=== PATIENT | female | born 1985 | race Caucasian/White ===

== ENCOUNTER → 2022-03-08 | Outpatient (CLI) | payer BC, MEDICAID, SELFPAY ==
[2022-03-12 09:07] LABS: Chlamydia By Nucleic Acid AMP Negative (Negative)
[2022-03-12 18:39] LABS: Gonococcus By Nucleic Acid AMP Negative (Negative)
[2022-03-14 16:25] LABS: HPV APTIMA, High Risk Positive (Negative)
== END | disposition home or self-care (01) ==
PROVIDERS: PCP Internal Medicine; Visit Provider Obstetrics & Gynecology
DX: O23.40 Unspecified infection of urinary tract in pregnancy, unspecified trimester (principal); O99.891 Other specified diseases and conditions complicating pregnancy; R31.9 Hematuria, unspecified
CPT/HCPCS: 87086; 87491; 87591; 87624; 88175; G0145

== ENCOUNTER → 2022-03-09 | Outpatient (CLI) | payer BC, MEDICAID, SELFPAY ==
[2022-03-09 10:26] LABS: Absolute Lymphocyte Count 3.19 X10^3/uL (0.83-4.51); Absolute Neutrophil Count 8.3 X10^3/uL (2.0-7.7); Basophil# 0.04 X10^3/uL; Basophil% 0.3 % (0-1); Eosinophil# 0.24 X10^3/uL; Eosinophils% 1.9 % (0-5); Hematocrit 35.1 % (37-47); Hemoglobin 12.3 g/dL (12.0-15.0); Lymphocyte # 3.19 X10^3/ul (0.83-4.51); Lymphocyte % 25.4 % (19-41); Mean Corpuscular Volume 91.4 fL (81-99); Mean Platelet Vol. 8.7 fl (6.2-12.0); Monocyte# 0.79 X10^3/uL; Monocyte% 6.3 % (0-10); NRBC Flagged by Analyzer 0 % (0-5); Neutrophil # 8.25 X10^3/uL (2.7-7.7); Neutrophil % 65.5 % (47-70); Platelet Count 188 K/mm3 (150-450); RBC Distribution Width CV 12.9 % (11.6-14.6); RBC Distribution Width SD 42.4 fl (35.1-43.9); Red Blood Count 3.84 M/mm3 (4.2-5.4); White Blood Count 12.6 K/mm3 (4.4-11.0)
[2022-03-09 10:53] LABS: Glucose Challenge Gest 1H 50g 131 mg/dL (70-140)
[2022-03-09 11:10] LABS: NATERA MAILED SPECIMEN
[2022-03-09 11:32] LABS: HIV - WCH Non-Reactive (Nonreactive); Hepatitis B Surface Antigen Non-Reactive (Nonreactive); Hepatitis C Antibody Non-Reactive (Nonreactive); Rubella IgG Reactive (Nonreactive); Syphilis Antibodies Non-reactive
== END | disposition home or self-care (01) ==
PROVIDERS: PCP Internal Medicine; Referring Provider Obstetrics & Gynecology; Visit Provider Obstetrics & Gynecology
DX: O99.210 Obesity complicating pregnancy, unspecified trimester (principal); O09.521 Supervision of elderly multigravida, first trimester; Z31.430 Encounter of female for testing for genetic disease carrier status for procreative management
CPT/HCPCS: 36415; 82950; 85025; 86703; 86762; 86780; 86803; 86850; 86900; 86901; 87340

== ENCOUNTER → 2022-04-12 | Outpatient (CLI) | payer BC, MEDICAID, SELFPAY ==
--- NOTE | 2022-04-12 | EMB_PTH ---
PATIENT: LOC SIMEON LOC: [facility]#:[id number] AGE/SX: 37/F ROOM: RE04/12/[address]: Dr. Myranda Cazares DO : 1985 BED: DIS: 04/12/2022 SPEC #: [id number] RECD: 04/12/22 11:13 STATUS: MARCIA LONG #: [id number] SATYA: 04/12/22 00:[address]: Myranda Cazares DEPT: SURGICAL PATHOLOGY RECD BY: Moises Ceja ENTERED: 04/12/22 11:13 SP TYPE: ENDOM BX/C BRODER[place] DR: Dr. Renee Morse MD Tissues: Endometrium, NOS Procedures: Surgery Specimen Level IV HEADER OPERATION: Polypectomy PRE-OP DIAGNOSIS: Endocervical mass TISSUE SUBMITTED: Endocervical mass MICROSCOPIC DIAGNOSIS Endocervical mass, polypectomy: Inflamed benign endocervical polyp. SJ:sarah 04/13/2022 MICROSCOPIC DESCRIPTION Slides are reviewed. GROSS DESCRIPTION Received is one container labeled with the patient's name and not further designated. The specimen consists of a piece of hernandez mucoid tissue measuring 0.6 x 0.5 x 0.1 cm. The entire specimen is submitted in one cassette. / ANA:sarah 04/12/2022 TC:5 CPT: 78722
== END | disposition home or self-care (01) ==
PROVIDERS: PCP Internal Medicine; Referring Provider Obstetrics & Gynecology; Visit Provider Obstetrics & Gynecology
DX: N88.8 Other specified noninflammatory disorders of cervix uteri (principal)
CPT/HCPCS: 88305

== ENCOUNTER → 2022-07-02 | Outpatient (CLI) | payer BC, MEDICAID, SELFPAY ==
[2022-07-02 10:02] LABS: Absolute Lymphocyte Count 2.02 X10^3/uL (0.83-4.51); Absolute Neutrophil Count 7.5 X10^3/uL (2.0-7.7); Basophil# 0.04 X10^3/uL; Basophil% 0.4 % (0-1); Eosinophil# 0.15 X10^3/uL; Eosinophils% 1.4 % (0-5); Hematocrit 35.5 % (37-47); Hemoglobin 12.4 g/dL (12.0-15.0); Lymphocyte # 2.02 X10^3/ul (0.83-4.51); Lymphocyte % 19.3 % (19-41); Mean Corp Hgb Conc 34.9 g/dL (32-36); Mean Corpuscular Volume 97.3 fL (81-99); Mean Platelet Vol. 8.7 fl (6.2-12.0); Monocyte# 0.72 X10^3/uL; Monocyte% 6.9 % (0-10); NRBC Flagged by Analyzer 0 % (0-5); Neutrophil # 7.46 X10^3/uL (2.7-7.7); Neutrophil % 71.3 % (47-70); Platelet Count 178 K/mm3 (150-450); RBC Distribution Width CV 14.3 % (11.6-14.6); Red Blood Count 3.65 M/mm3 (4.2-5.4); White Blood Count 10.5 K/mm3 (4.4-11.0)
[2022-07-02 10:16] LABS: Glucose Challenge Gest 1H 50g 123 mg/dL (70-140)
[2022-07-02 11:16] LABS: HIV - WCH Non-Reactive (Nonreactive); Syphilis Antibodies Non-reactive
== END | disposition home or self-care (01) ==
LOC: PAVLAB 09:36
PROVIDERS: PCP Internal Medicine; Referring Provider Obstetrics & Gynecology; Visit Provider Obstetrics & Gynecology
DX: O09.90 Supervision of high risk pregnancy, unspecified, unspecified trimester (principal); Z3A.00 Weeks of gestation of pregnancy not specified
CPT/HCPCS: 36415; 82950; 85025; 86703; 86780

== ENCOUNTER 2022-08-18 22:10 | Inpatient (IN) | payer BC, MEDICAID, SELFPAY ==
[2022-08-18 22:04] LABS: ROM Internal Control Test YES-OK TO RESULT pt. (Internal QC); ROM Patient Test POSITIVE (Negative); Record Kit Lot#, ROM+ K1374
[2022-08-18 22:13] VITALS: BMI 44.0
[2022-08-18] MEDS: Betamethasone/Betamethasone 30 MG/5 ML Vial 12 MG IM (22:36)
[2022-08-18] MEDS: Lactated Ringers 1,000 ML 50 ML IV (22:47)
[2022-08-18 22:57] LABS: Absolute Lymphocyte Count 2.56 X10^3/uL (0.83-4.51); Absolute Neutrophil Count 7.1 X10^3/uL (2.0-7.7); Basophil# 0.05 X10^3/uL; Basophil% 0.5 % (0-1); Eosinophils% 1.8 % (0-5); Hematocrit 35.5 % (37-47); Hemoglobin 12.1 g/dL (12.0-15.0); Lymphocyte # 2.56 X10^3/ul (0.83-4.51); Lymphocyte % 23.4 % (19-41); Mean Corp Hgb Conc 34.1 g/dL (32-36); Mean Corpuscular Hgb 33.3 pg (27.0-32.0); Mean Corpuscular Volume 97.8 fL (81-99); Mean Platelet Vol. 9.5 fl (6.2-12.0); Monocyte# 0.97 X10^3/uL; Monocyte% 8.9 % (0-10); NRBC Flagged by Analyzer 0 % (0-5); Neutrophil # 7.09 X10^3/uL (2.7-7.7); Neutrophil % 64.8 % (47-70); Platelet Count 201 K/mm3 (150-450); RBC Distribution Width SD 50.1 fl (35.1-43.9); Red Blood Count 3.63 M/mm3 (4.2-5.4); White Blood Count 10.9 K/mm3 (4.4-11.0)
[2022-08-18 23:20] LABS: Amphetamine Urine VISTA NEGATIVE (<1000 ng/mL); Barbiturate Urine VISTA NEGATIVE (< 200 ng/mL); Benzodiazepine Urine VISTA NEGATIVE (< 200 ng/mL); Cocaine Urine VISTA NEGATIVE (< 300 ng/mL); Ecstacy Urine VISTA NEGATIVE (< 500 ng/mL); Methadone Urine VISTA NEGATIVE (< 300 ng/mL); PCP Urine VISTA NEGATIVE (< 25 ng/mL); THC Urine VISTA NEGATIVE (< 50 ng/mL); Vista UDS pH Range 5
[2022-08-18 23:21] VITALS: BP 128/61; PULSE 96; TEMP 37.1; O2SAT 97
--- NOTE | 2022-08-18 23:23 | HP.PCM.OB_ITS ---
HPI - General General Date of Admission: 08/18/22 HPI Narrative LOC SIMEON, is a 37 y/o @ 34 weeks 4 days who presents to L&D with premature rupture of membranes. She felt a gush of fluid after having sex and then noticed some pink fluid. ROM+ was positive. Her was significant for circumvellate placenta. The last growth scan 2 weeks ago showed that the fetus was 1820 grams and in the 54th%. Maternal Data Information JENISE Calculator Estimated Delivery Date Method Current WG Current Estimate 09/25/22 Ultrasound #1 34w 4d Other Estimates 10/04/22 LMP (Certain) 33w 2d PFSH PFSH Medical History (Updated 08/18/22 @ 23:[address] Myranda Cazares, DO) Depression HPV (human papilloma virus) infection Hx of abnormal cervical Papanicolaou smear Placental abnormality depression Superficial varicosities Home Medications multivit-min no.71-iron fum 28 mg-folate no.1 1 mg-dha 300 mg capsule (PNV- [place]) 1 cap PO DAILY 03/02/22 [History Last Taken 08/16/22 09:00] cetirizine 10 mg tablet (24Hour Allergy) 10 mg PO DAILY PRN alleriges 08/18/22 [History Last Taken 08/16/22 09:00] Allergy/AdvReac Type Severity Reaction Status Date / Time No Known Allergies Allergy Verified 08/15/22 14:41 Family History Brother Heart murmur Surgical History (Updated 08/18/22 @ 22:19 by Kaylyn Barragan) History of surgery Hx of chest tube placement Hx of plastic surgery Social History adopted: No household members: spouse and children number of children: 2 current occupational status: employed current occupation: [employer] current occupational exposures/hazards: Yes (sanitation chemical once every two weeks) pets and animals: Yes pets and animals: dog(s) history of recent travel: No sexually active: Yes Smoking Status: Former smoker alcohol intake: former details: Quit March substance use type: does not use and former substance user Date of last use: 2011- meth, cocaine, marijuana diet: lactose free well-balanced diet: daily or most days caffeine: No eating out: 1-3 times/week during the past year weight has: remained stable what type of physical activity do you participate in: none roland/zoroastrianism: Adventist seatbelt use: always do you feel safe at home: Yes additional social history: [employer]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 Date Name GA/Weeks Outcome Route Bth Weight Infant Gen Labor Lgth Anesthesia Del Locatn Provider FOB 10/11/02 Sulaiman 39 live - full term 6#10oz Male 12 Hrs epi dural [facility] Dr. Marie Meyers 07/03/11 Lloyd 40 live - full term 7#2oz Male 12 HR epidu ral [facility] Esequiel Delivery Date: 10/11/02 Last Updated by: Wendy Owens IOL Delivery Date: 07/03/11 Last Updated by: Wendy Owens IOL Visit Details Expected Delivery Route/Plan Labor Preferences- CB/BF classes: no labor support person: Jered labor intervention preferences: pain management options preferred: epidural cut cord/dad catch: cord : yes PP control planned: [] discussed possible routes of delivery and associated risks: [] special requests: [] Plans Covid status: [] Flu vaccine: [] Tdap vaccine: [] Rhogam: [] LARC form signed: [] Problem list reviewed and updated with the most current plan of care details and appropriate orders placed. Relevant counseling for the gestational age provided. Continue routine care and follow up unless otherwise noted in visit notes/problem list details OB Flowsheet Initial Weight: Not Recorded Date -?-?-?-?-?-?-?-?-?-?-?-?- EGA Weight BP Urine Prot -?-?-?-?-?-?-?-?-?-?-?-?- Glucose FHR FuHt Pres Dilation -?-?-?-?-?-?-?-?-?-?-?-?- Effaced St Visit Note 03/08/22 -?-?-?-?-?-?-?-?-?-?-?-?- 11w 2d 265 lb 108/75 -?-?-?-?-?-?-?-?-?-?-?-?- 180 -?-?-?-?-?-?-?-?-?-?-?-?- JV- single live IUP measuring 11 weeks 2 days and not consistent with lmp. new jenise of 09/25/22 given. pt desires NIPT. youngest baby is 10 years old 04/02/22 -?-?-?-?-?-?-?-?-?-?-?-?- 14w 6d 265 lb 6 oz 110/72 Nega tive -?-?-?-?-?-?-?-?-?-?-?-?- Negative 170 -?-?-?-?-?-?-?-?-?-?-?-?- MH-NO Vb, eddie ng. Feels well. Br US confirm FHT. 04/30/22 -?-?-?-?-?-?-?-?-?-?-?-?- 18w 6d 270 lb 4 oz 124/82 Nega tive -?-?-?-?-?-?-?-?-?-?-?-?- Negative 154 -?-?-?-?-?-?-?-?-?-?-?-?- MH-No Vb, LOF. F eeling flutters. Anatomy US today 05/28/22 -?-?-?-?-?-?-?-?-?-?-?-?- 22w 6d 271 lb 8 oz 123/75 -?-?-?-?-?-?-?-?-?-?-?-?- 140 -?-?-?-?-?-?-?-?-?-?-?-?- Sm- no vb lof go od fm no regular ctx 06/25/22 -?-?-?-?-?-?-?-?-?-?-?-?- 26w 6d 276 lb 8 oz 120/76 Nega tive -?-?-?-?-?-?-?-?-?-?-?-?- Negative 132 -?-?-?-?-?-?-?-?-?-?-?-?- MH-No Vb, LOF. G ood FM. Has US with MFM 06/26 to check placenta. 07/10/22 -?-?-?-?-?-?-?-?-?-?-?-?- 29w 0d 274 lb 114/74 Negative -?-?-?-?-?-?-?-?-?-?-?-?- Negative 150 -?-?-?-?-?-?-?-?-?-?-?-?- SM- no vb lof go od fm no regular ctx 08/02/22 -?-?-?-?-?-?-?-?-?-?-?-?- 32w 2d 281 lb 4 oz 109/73 Nega tive -?-?-?-?-?-?-?-?-?-?-?-?- Negative 129 33 -?-?-?-?-?-?-?-?-?-?-?-?- JV- growth scan in the 54th%, circumvellate placenta, bpp 09/25. has follow up in 4 weeks. resolved low lying placenta. 08/15/22 -?-?-?-?-?-?-?-?-?-?-?-?- 34w 1d 289 lb 2 oz 125/81 Nega tive -?-?-?-?-?-?-?-?-?-?-?-?- Negative 120 34 -?-?-?-?-?-?-?-?-?-?-?-?- LC- reactive nst . no vb/lof/ctx. good fm.growth scans scheduled. ROS Constitutional Constitutional: Denies change in weight, fatigue, fever(s), headache(s), poor appetite or weakness Eyes Eyes: Denies blurry vision, change in vision, seeing flashes or spots in vision ENT HEENT: Denies dizziness, headache(s), loss taste/smell or sore throat Cardiovascular Cardiovascular: Denies chest pain, dizziness, dyspnea, irregular heart rhythm, leg edema, palpitations, rapid heart rate or vomiting Respiratory/Chest Respiratory/Chest: Denies chest tightness, cough, dyspnea or breast pain Gastrointestinal Gastrointestinal: Denies abdominal pain, anorexia, constipation, cramping, diarrhea, hemorrhoids, vomiting or weight changes Genitourinary Genitourinary: Denies dysuria, flank pain, genital lesions, genital pain, urinary frequency or urinary urgency Musculoskeletal Musculoskeletal: Denies back pain, difficulty walking, joint pain, limited range of motion, muscle cramps or numbness Integumentary Integumentary: Denies lesions or unusual bruising Neurologic Neurologic: Denies abnormal movements, abnormal speech, dizziness, numbness, seizure-like activity or syncope Psychiatric Psychiatric: Denies anxiety, behavioral changes, change in appetite, change in libido, cognitive impairment, confusion, depression, difficulty concentrating, hallucinations or suicidal thoughts Endocrine Endocrinology: Denies excessive sweating, polydipsia or polyuria Hematologic/Lymphatic Hematologic/Lymphatic: Denies easy bleeding, easy bruising or lymphadenopathy Allergic/Immunologic Allergic/Immunologic: Denies itchy eyes, lip swelling, seasonal rhinorrhea, rhinitis, throat swelling, tongue swelling, eczemia, wheezing or asthma Vital Signs Vital Signs Vital Signs: 08/18/22 23:21 08/18/22 23:21 08/18/22 23:21 Temperature Temperature Source Tympanic Pulse Rate 96 Blood Pressure 128/61 H BP Systolic 128 BP Diastolic 61 Pulse Ox 08/18/22 23:21 08/18/22 23:21 Temperature 98.8 F Temperature Source Pulse Rate Blood Pressure BP Systolic BP Diastolic Pulse Ox 97 Weight Weight: 289 lb 7.471 oz Body Mass Index (BMI) 44.0 Physical Exam Const alert, oriented x3, no apparent distress and healthy appearing General Appearance: cooperative; Negative for anxious HEENT normocephalic Face and Sinus: normal facial exam Eyes EOMs intact bilaterally and no scleral icterus General Eye: normal appearance of both eyes Neck full ROM and supple Lymph Lymphatic: no lymphadenopathy noted Chest Chest: abnormal inspection of the chest Resp normal respiratory effort Effort and Inspection: able to speak in complete sentences Cardio regular rate GI soft to palpation and non-tender Inspection: gravid Palpation: soft; Negative for tender external exam normal Narrative: on bedside ultrasound the head is in the vertex presentation, GERMAN is 12. cx: Amniotic Fluid: ROM+plus positive + Back/Spine no CVA tenderness Extremity normal to inspection, full ROM and no clubbing, cyanosis or edema General Extremity: Negative for calf tenderness or edema Skin Lesions: no lesions Rashes: no rashes Psych mental status grossly normal Labs Labs Labs: Blood Type O POSITIVE Antibody Screen NEGATIVE Hct 35.5 % (37-47) L Hgb 12.1 g/dL (12.0-15.0) Syphilis Total Ab Non-reactive Rubella IgG Antibody Reactive (Nonreactive) Hep Bs Antigen Non-Reactive (Nonreactive) Chlamydia DNA (DEE DEE) Negative (Negative) Neisseria gonorrhoeae DNA (DEE DEE) Negative (Negative) HIV 1&2 Antibody Non-Reactive (Nonreactive) Glucose 1 Hr 50 gm 123 mg/dL (70-140) Assessment & Plan (1) premature rupture of membranes: (2) Circumvallate placenta: COMMENT: Growth US Q4 wk: 07/26 54% (3) Abnormal Pap smear of cervix: COMMENT: repeat pap PP (4) Obesity affecting : COMMENT: encouraged healthy weight gain, weely nsts after 34 (5) Advanced maternal age (AMA) in : COMMENT: nl NIPT. genetic counseling provided (6) Depression: COMMENT: no meds counseling encouraged (7) Supervision of high risk , antepartum: COMMENT: [id number], JENISE 10/04/22 boy lydia Hilario, Lloyd Elmo (8) : QUALIFIERS: Weeks of gestation: 34 weeks Qualified Code(s): Z3A.34 - 34 weeks gestation of COMMENT: NIPT low risk, carrier testing neg. . ntd screen declined. anatomy nl. PLAN: Plan 1. admit to L&D 2. collect gbs and gc/ct, cbc, type and screen,syphilis 3. start amp 2grams now, 250mg of azith 4. celestone 12.5 mg im now 5. if no spontaneous labor in 24 hours will likely induce tomorrow. pt asks about continuing with observation if no labor. we will discuss this at that benito erick
[2022-08-18] MEDS: Azithromycin 250 MG Tablet 500 MG PO (23:56)
[2022-08-19] VITALS (14 sets, daily range): BP systolic 120–137; BP diastolic 62–83; PULSE 83–104; TEMP 36.1–37.2; O2SAT 95–98
[2022-08-19 00:01] LABS: Syphilis Antibodies Non-reactive
[2022-08-19] MEDS: Lactated Ringers 1,000 ML 100 ML IV (00:42)
[2022-08-19 02:57] LABS: Bacteria 0 SEEN /hpf (None Seen); Mucous, Urine 0 SEEN /hpf (<or=2+); Red Blood Cells-Urine 0 SEEN /hpf (0-5); Squamous Epithelial Cells - UA 0 SEEN /hpf (5-10); White Blood Cells 0 SEEN /hpf (0-5)
[2022-08-19 02:59] LABS: Color, Urine Yellow (Yellow); Glucose, Dipstick Normal (Normal); Ketone-Dipstick Negative (Negative); Leukocyte Esterase-Dipstick Negative /ul (Negative); Nitrite-Dipstick Negative (Negative); Occult Blood-Urine 10 /ul (Negative); Protein-Dipstick Negative (Negative); Specific Gravity, Urine 1.005 (1.002-1.030); Urine Bilirubin Dipstick Negative (Negative); Urine Clarity Clear (Clear); Urine Urobilinogen Normal (Normal)
[2022-08-19 03:24] LABS: Group B Strep DNA By PCR Negative (Negative); Internal Control PASS; Probe Check PASS; Specimen Processing Control PASS
--- NOTE | 2022-08-19 09:21 | PCM.PN.BLA ---
Progress Note patient is laying in bed comfortably. She is not having any contractions, fevers, or chills. current tracing: FHT: Moderate variability reactive no decelerations category I tracing [place]: rare Contractions reviewed tracing abnormalities since last note: category 1 since admission A/P: pprom continue expectant management today. celestone was given at 10 pm last night. will wait 24 hours until starting induction. likely will need cytotec due to prior cervical exam. pt wishes to have epidural in active labor scd's today while in bed.
[2022-08-19] MEDS: 0.9% Saline Lock 10 ML Syringe IV (10:59)
[2022-08-19] MEDS: Docusate Sodium 100 MG Capsule 200 MG PO (11:38)
[2022-08-19] MEDS: Prenatal Vits Tablet 1 TABLET PO (11:38)
[2022-08-19] MEDS: Betamethasone/Betamethasone 30 MG/5 ML Vial 12 MG IM (22:32)
[2022-08-19] MEDS: miSOPROStol 25 MCG TABLET PO (22:40)
[2022-08-20] VITALS (31 sets, daily range): BP systolic 102–152; BP diastolic 48–86; PULSE 76–112; RESP 16–18; TEMP 36.2–37; O2SAT 97–100
[2022-08-20] MEDS: miSOPROStol 25 MCG TABLET PO (03:08)
[2022-08-20] MEDS: Lactated Ringers 1,000 ML 50 ML IV (07:26)
[2022-08-20] MEDS: Oxytocin 15 Units/NS 250ml 15 UNITS/250 ML IV.SOLN 2 UNITS IV (07:26)
[2022-08-20] MEDS: 0.9% Saline Lock 10 ML Syringe IV (09:33)
[2022-08-20] MEDS: LACTATED RINGERS 500 ML 999 ML IV (09:33)
--- NOTE | 2022-08-20 10:52 | PN_ITS ---
Progress Note pit started for minimal cervical change current tracing: FHT: 140 Moderate variability reactive no decelerations category I tracing [place]: no regular Contractions reviewed tracing abnormalities since last note: isolated variable A/P: continue pit per protocol, amp stopped gbs neg
[2022-08-20] MEDS: fentaNYL-bupivacaine (epidural) 100 ML BAG EPIDURAL (11:46)
[2022-08-20] MEDS: Docusate Sodium 100 MG Capsule 200 MG PO (12:07)
[2022-08-20] MEDS: Ondansetron 4 MG/2 ML Vial IV (15:42)
[2022-08-20] MEDS: Lactated Ringers 1,000 ML 200 ML IV (15:46)
[2022-08-20] MEDS: Oxytocin 15 Units/NS 250ml 15 UNITS/250 ML IV.SOLN 83 UNITS IV (16:45)
--- NOTE | 2022-08-20 17:31 | OP.PCM_ITS ---
Assessment & Plan (1) premature rupture of membranes: (2) Circumvallate placenta: COMMENT: Growth US Q4 wk: 07/26 54% (3) Abnormal Pap smear of cervix: COMMENT: repeat pap PP (4) Obesity affecting : COMMENT: encouraged healthy weight gain, weely nsts after 34 (5) Advanced maternal age (AMA) in : COMMENT: nl NIPT. genetic counseling provided (6) : QUALIFIERS: Weeks of gestation: 34 weeks Qualified Code(s): Z3A.34 - 34 weeks gestation of COMMENT: NIPT low risk, carrier testing neg. . ntd screen declined. anatomy nl. (7) Supervision of high risk , antepartum: COMMENT: [id number], JENISE 10/04/22 boy darvin MICHAEL Hilario, Lloyd Elmo (8) Depression: COMMENT: no meds counseling encouraged (9) Vaginal delivery: COMMENT: SM 34 PPROM boy Darvin Maternal Data Information JENISE Calculator Estimated Delivery Date Method Current WG Current Estimate 09/25/22 Ultrasound #1 34w 6d Other Estimates 10/04/22 LMP (Certain) 33w 4d Vaginal Delivery Operative Information Date of Procedure: 08/20/22 Pre-Operative Diagnosis: see a/p diagnoses Post-Operative Diagnosis: same Surgery / Procedure Performed: Spontaneous Vaginal Delivery Type of Anesthesia: Epidural Special Medications: none Estimated Blood Loss: 200 Fluids Replaced: crystalloid Findings Description of Procedure: Patient was 4 cm at 215 on last nursing cervical exam and then at 4:00 it was difficult to trace the heart rate tracing and therefore the nurse repositioned the patient and upon opening her legs visualized the head and the shoulders spontaneously delivering themselves therefore the doctor (myself) was called immediately who was in-house in my office. I ran down and arrived as soon as possible and upon presentation had just delivered for the nurse spontaneously the cord was clamped and cut, the venetian blind tape cutter had not even arrived at delivery yet for assessment of the infant. Placenta was not yet delivered. I applied gentle traction to the cord and the placenta delivered spontaneously immediately following it was noted to be intact with three-vessel cord. The perineum and vagina were inspected and noted to have no laceration. EBL was 200 cc. Patient and tolerated delivery well. Amniotic Fluid Description: Clear Placental Delivery Description: Spontaneous Placenta Disposition: [facility] Cord Vessel Description: 3 Vessels Cord Entanglement: None Delayed Cord Clamping: Yes Post Vaginal Delivery Medications Given After Delivery: IV Pitocin Episiotomy Description: None Complication Complications: None Procedures Urinary/Genital [id number]: [id number] Vaginal Delivery [facility]
--- NOTE | 2022-08-20 17:37 | DCINST_ITS ---
Discharge Instructions Diet Discharge Diet: No restrictions Activity Discharge Activity: Return to Normal Activity, May Not Drive (while taking narcotic pain medications.) and May Shower May resume sexual activity in: 4-6 weeks Dressing / Incision Call your doctor if your incision/area has: Continuous Slow Oozing, Sudden Increased Bleeding, Increased Pain/ Swelling, Increased Redness and Foul Smelling Discharge Follow Up Care Please Follow Up With: Shazia Cosme MD When: Call [phone] to make an appointment with your doctor in 6 weeks. If you had elevated blood pressure or 4th degree laceration, you will need to be seen in 2 weeks. Test Results: Test results from this visit will be discussed in further detail at your follow- up appointment, if applicable. Discharge Plan Admission Admit Date/Time: 08/18/22 22:10 Attending Provider: Myranda Cazares Primary Care Provider: Renee Morse Discharge Orders/Prescriptions Prescriptions: No Action PNV-Haskell 28-1-300 mg capsule 1 cap PO DAILY cetirizine [24Hour Allergy] 10 mg tablet 10 mg PO DAILY PRN (Reason: alleriges) Referrals / Follow Up: Renee Morse MD [Primary Care Provider] - Disposition Disposition (needs filled in before D/C Order can be placed): Home, Self Care
[2022-08-21 03:58] VITALS: BP 114/67; PULSE 71; RESP 14; TEMP 36.2
--- NOTE | 2022-08-21 06:41 | PCM.PN.OB ---
Subjective Subjective Patient doing well without complaints. Tolerating PO. Ambulating and voiding without difficulty. feeding well. Denies chest pain, shortness of breath, calf pain/swelling, fevers, chills, lightheadedness. Objective Data Objective Data Vital Signs: Vital Signs Temp Pulse Resp BP Pulse Ox O2 Del Method 97.1 F L 71 14 114/67 99 Room Air 08/21/22 03:58 08/21/22 03:58 08/21/22 03:58 08/21/22 03:58 08/20/22 14:10 08/21/22 03:58 Oxygen Delivery Method Room Air Weight: 289 lb 7.471 oz Body Mass Index (BMI) 44.0 Intake & Output: Intake and Output for Last 24 Hours 08/19/22 08/20/22 08/21/22 23:59 23:59 23:59 Intake Total 3295.83 / 3295.83 4747.87 / 4747.87 Output Total 200 / 200 3900 / 3900 800 / 800 Balance 3095.83 / 3095.83 847.87 / 847.87 -800 / -800 Lab / Micro Data 08/18/22 22:45 Micro: Microbiology 08/18/22 02:49 Urine, Clean Catch Urine Culture - Preliminary Culture exhibits no growth. 08/19/22 02:49 Urine, Clean Catch Chlamydia trachomatis (PCR) - Final 08/19/22 02:49 Urine, Clean Catch Neisseria gonorrhoeae (PCR) - Final ROS Constitutional Constitutional: Reports systems reviewed and no addt'l complaints, except as documented Cardiovascular Cardiovascular: Reports systems reviewed and no addt'l complaints, except as documented Respiratory/Chest Respiratory/Chest: Reports systems reviewed and no addt'l complaints, except as documented Gastrointestinal Gastrointestinal: Reports systems reviewed and no addt'l complaints, except as documented Physical Exam Const alert, oriented x3 and no apparent distress HEENT Head and Scalp: atraumatic Resp normal respiratory effort GI soft to palpation and non-tender Bimanual Exam - Vag & Uterus: uterus non-tender Uterus Palpation: uterus fundus firm (below Umbilicus) Assessment & Plan (1) Vaginal delivery: COMMENT: SM 34 PPROM boy Darvin (2) Depression: COMMENT: no meds counseling encouraged PLAN: Plan s/p PPD # 1 1. routine post delivery care 2. breast feeding- support given 3. rh positive 4. rubella immune
[2022-08-21 09:00] VITALS: BP 121/61; PULSE 87; RESP 18; TEMP 36.4; O2SAT 98
[2022-08-21] MEDS: Naproxen 500 MG Tablet PO (13:34)
[2022-08-21 13:39] VITALS: BP 118/59; PULSE 87; RESP 18; TEMP 36.3
[2022-08-21 17:09] VITALS: BP 118/67; PULSE 79; RESP 18; TEMP 36.2
[2022-08-21 19:33] VITALS: BP 135/86; PULSE 77; RESP 15; TEMP 36.6; O2SAT 98
[2022-08-22 01:22] VITALS: BP 138/73; PULSE 79; RESP 15
--- NOTE | 2022-08-22 08:01 | PCM.PN.OB ---
Subjective Subjective Patient doing well without complaints. Tolerating PO. Ambulating and voiding without difficulty.Baby Darvin in SCN, she is pumping. He is latching briefly/has feeding tube. Denies chest pain, shortness of breath, calf pain/swelling, fevers, chills, lightheadedness. Objective Data Objective Data Vital Signs: Vital Signs Temp Pulse Resp BP Pulse Ox O2 Del Method 97.8 F 79 15 138/73 H 98 Room Air 08/21/22 19:33 08/22/22 01:22 08/22/22 01:22 08/22/22 01:22 08/21/22 19:33 08/22/22 01:22 Oxygen Delivery Method Room Air Weight: 289 lb 7.471 oz Body Mass Index (BMI) 44.0 Intake & Output: Intake and Output for Last 24 Hours 08/20/22 08/21/22 08/22/22 23:59 23:59 23:59 Intake Total 4747.87 / 4747.87 Output Total 3900 / 3900 800 / 800 Balance 847.87 / 847.87 -800 / -800 Lab / Micro Data 08/18/22 22:45 Micro: Microbiology 08/18/22 02:49 Urine, Clean Catch Urine Culture - Final Culture exhibits no growth. 08/19/22 02:49 Urine, Clean Catch Chlamydia trachomatis (PCR) - Final 08/19/22 02:49 Urine, Clean Catch Neisseria gonorrhoeae (PCR) - Final Physical Exam Const alert and oriented x3 HEENT normocephalic Eyes PERRL Neck full ROM Resp normal respiratory effort GI soft to palpation GI Narrative: FF below U Assessment & Plan (1) Vaginal delivery: COMMENT: SM 34 PPROM boy Darvin PLAN: Plan s/p PPD # 2 1. routine post delivery care 2. breast feeding- support given 3. rh positive 4. rubella immune 5. hotel status today
[2022-08-22 08:05] VITALS: BP 126/76; PULSE 80; RESP 16; TEMP 36; O2SAT 97
--- NOTE | 2022-08-22 15:56 | CASEMGMT ---
Social Work Assessment Labor and Delivery Unit Patient Address:[address] [place], [place] [address] [address] Phone number: [phone] Date of Referral: 08/18/22 Time of Referral:? [id number] Referred By: Myranda Cazares Date of Intervention: ??08/22/22 Time of Intervention:?1400 Reason for Referral:? Substance use, mental health History obtained from: medical records and mother of baby (MOB- Fiorella)??? Household composition: SELINA reports that currently living in her home is herself, father of baby (FOB- Elmo Peraza), Elmo's 18 year old child, and MOB son Lloyd (: 07/03/2011). Patient's parent/guardian status: SELINA reports that she and GAVI had known each other for quite some time. They have been in a relationship since 2020 when they started talking about their personal experiences with recovery, and focusing on their roland. SELINA reports that she is safe at home, denies current domestic violence/ abuse. Medical History: This is third and delivery for SELINA. Baby was born via vaginal delivery. SELNIA received routine care with [facility]. Baby boy, Darvin Nair, was born on 08/20/22 weighing 5lb and 10 ounces. Baby was born at 34 weeks gestation. Apgars were 4 and 9. Baby is admitted to [facility]. He required respiratory support following delivery and has been able to be weaned back to room air. He continues to work on oral feeds. Baby will need to take full feeds PO before he will medically be ready for discharge. Educational Status: MOB states that she has obtained her GED. MOB states that GAVI did not graduate but she is not sure his highest level of education. MOB states that FOB did require IEP. ? 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 He has been there for less than 6 months. His employer is being generous and offering FOB some time off following baby's delivery. SELINA is employed at [employer], she is able to get 6 weeks off of work. Supplies: MOB states that they have been able to obtain all necessary baby items including car seat, safe sleep space, clothes, diapers and wipes. Childcare/Caregiver(s):? MOB states that when both parents have returned to work she has family who will be able to watch baby. Transportation:?? Both parents have reliable transportation, no barriers at this time. Programs/Agencies Involved: SELINA is connected to [facility] and is active in counseling with Padmini Lee. ??? Children Services/Legal Issues:??MOB denies legal involvement. Behavioral Health Issues: ?? Mental Health History:??MOB states that GAVI has Bipolar and is prescribed a mood stabilizer. MOB states that she has been diagnosed with depression and has a history of depression when her first child was born. Dakotah completed Edingubrg Screen with SELINA, her score was a 5. Sw encouraged SELINA to continue to meet with her counselor and more regularly during her period. MOB expressed understanding. Substance Use History:?SELINA and FOB both have substance use history. SELINA has history of THC, cocaine and methamphetamine use, as well as alcoholism. SELINA reports that her last drink was March 2020 and the last time she used was in 2018. SELINA states that GAVI used last in 2019, he went through treatment at [facility] [place]. SELINA reports that both parents are good supports for each other. They do not engage with family members or friends who are still using. MOB states that they do not have a test for anything. Family History:?SELINA reports that her parents have history of alcoholism. Drug Screens: ?SELINA urine screen on 08/18/22 was negative for all substances. ? Family/Social Stressors:? SELINA does not express any concerns or issues at this time. Support Systems: SELINA reports that she has friends and family who are good supports for her. MOB states that GAVI also has some family who is supportive as well. Depression/Shaken Baby/Safe Sleeping: Dakotah provided education and literature on baby blues and post depression. Sw educated MOB on signs and symptoms to look for. MOB talked about symptoms that she experienced before. MOB states at this time she feels good and is coping well given that baby is admitted to [facility] Care Nurs[facility]. Dakotah educated MOB to never shake a baby and ABCs of safe sleep. MOB expressed understanding. ? ASSESSMENT:? MOB and FOB both have history positive for substance use. Both parents have been in recovery since 2019. MOB was talkative and open about her mental health and substance use history. MOB open and receptive to sw involvement and support. ?? PLAN:? SELINA is discharged from , in hotel status. Baby still admitted in Special Care Nursery. MOB encouraged to reach out to social work should any needs or concerns arise. Sw also encouraged parents to consider linkage with [facility] at time of discharge. ?No other services requested or indicated. Isaiah Padgett, LACE MENDER, CHECK VIEWER
--- NOTE | 2022-08-28 08:36 | PCM.DC.SUM ---
Providers Date of Admission: 08/18/22 Primary Care Physician: Dr. Renee Morse MD Reason For Visit: VAG DELIVERY Diagnosis Discharge Diagnosis (1) Vaginal delivery: Status: Inactive Code(s): O80 - Encounter for full-term uncomplicated delivery Plan s/p PPD # 2 1. routine post delivery care 2. breast feeding- support given 3. rh positive 4. rubella immune 5. hotel status today Medications at Discharge Home Medications multivit-min no.71-iron fum 28 mg-folate no.1 1 mg-dha 300 mg capsule (PNV-Hockessin) 1 cap PO DAILY 03/02/22 cetirizine 10 mg tablet (24Hour Allergy) 10 mg PO DAILY PRN alleriges 08/18/22 Hospital Course Operations - (vaginal delivery) Procedures None Summary of Care Provided Hospital Course: Patient underwent vaginal delivery with routine recovery, return of normal bowel and bladder function. Ambulating, voiding and tolerating PO. Stable for discharge home POD #3. Weight / BMI Weight Weight: 289 lb 7.471 oz Body Mass Index (BMI) 44.0 ABG / Lab / Microbiology Data 08/18/22 22:45 Microbiology: Microbiology 08/19/22 Unknown Genital vaginal Group B Streptococcus Culture - Final Group B Beta Streptococcus is not isolated. 08/18/22 02:49 Urine, Clean Catch Urine Culture - Final Culture exhibits no growth. 08/19/22 02:49 Urine, Clean Catch Chlamydia trachomatis (PCR) - Final 08/19/22 02:49 Urine, Clean Catch Neisseria gonorrhoeae (PCR) - Final D/C Instructions Discharge Diet: No restrictions May resume sexual activity in: 4-6 weeks Call your doctor if your incision/area has: Continuous Slow Oozing, Sudden Increased Bleeding, Increased Pain/ Swelling, Increased Redness and Foul Smelling Discharge Please Follow Up With: Shazia Cosme MD When: Call [phone] to make an appointment with your doctor in 6 weeks. If you had elevated blood pressure or 4th degree laceration, you will need to be seen in 2 weeks. Meaningful Use Info Meaningful Use Diagnoses (Choose all that apply): None applicable Discharge Plan Admission Admit Date/Time: 08/18/22 22:10 Attending Provider: Myranda Cazares Primary Care Provider: Renee Morse Discharge Orders/Prescriptions Prescriptions: No Action PNV-Hockessin 28-1-300 mg capsule 1 cap PO DAILY cetirizine [24Hour Allergy] 10 mg tablet 10 mg PO DAILY PRN (Reason: alleriges) Referrals / Follow Up: Renee Morse MD [Primary Care Provider] - Disposition Disposition (needs filled in before D/C Order can be placed): Home, Self Care
== END 2022-08-22 11:20 | disposition home or self-care (01) | DRG 807 ==
LOC: WPOUT 22:13 → WP 22:13
PROVIDERS: Admitting Provider Obstetrics & Gynecology; PCP Internal Medicine; Referring Provider Obstetrics & Gynecology; Visit Provider Obstetrics & Gynecology
DX: O42.913 Preterm premature rupture of membranes, unspecified as to length of time between rupture and onset of labor, third trimester (principal); Z37.0 Single live birth; E66.9 Obesity, unspecified; F32.A Depression, unspecified; O43.113 Circumvallate placenta, third trimester; O99.344 Other mental disorders complicating childbirth; O99.214 Obesity complicating childbirth; Z3A.34 34 weeks gestation of pregnancy; Z87.891 Personal history of nicotine dependence
CPT/HCPCS: 59025; 59050; 80307; 81001; 84112; 85025; 86780; 86850; 86900; 86901; 87081; 87086; 87491; 87591; 87653; 99221; J7120; A4216; G0378; J0702; J2405

== ENCOUNTER → 2022-10-01 | Outpatient (CLI) | payer BC, MEDICAID, SELFPAY ==
[2022-10-05 14:10] LABS: HPV APTIMA, High Risk Positive (Negative)
== END | disposition home or self-care (01) ==
LOC: LABSPEC 12:41
PROVIDERS: PCP Internal Medicine; Referring Provider Obstetrics & Gynecology; Visit Provider Obstetrics & Gynecology
DX: Z12.4 Encounter for screening for malignant neoplasm of cervix (principal)
CPT/HCPCS: 87624; 88175; G0145

== ENCOUNTER → 2022-11-15 | Outpatient (CLI) | payer BC, MEDICAID, SELFPAY ==
--- NOTE | 2022-11-15 | ECC_PTH ---
PATIENT: LOC SIMEON LOC: [facility]#:[id number] AGE/SX: 37/F ROOM: RE11/15/[address]: Dr. Myranda Cazares DO : 1985 BED: DIS: 11/15/2022 SPEC #: [id number] RECD: 11/15/22 15:37 STATUS: MARCIA ALVES #: [id number] SATYA: 11/15/22 00:[address]: Myranda Cazares DEPT: SURGICAL PATHOLOGY RECD BY: Anita Desouza ENTERED: 11/16/22 08:07 SP TYPE: ECC OTHR DR: Dr. Renee Morse MD Tissues: A - Endocervical B - Uterine cervix, NOS Procedures: Surgery Specimen Level IV HEADER OPERATION: Colposcopy PRE-OP DIAGNOSIS: ASCUS, HPV positive TISSUE SUBMITTED: A - Endocervical curettings, B - 12 o'clock MICROSCOPIC DIAGNOSIS A. Endocervix, curettings: Mucoid material and rare benign glandular epithelial cells. B. 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 Chronic inflammation. See comment. AM:sarah 11/19/2022 COMMENT B. Results from immunohistochemistry ([id number]) for surrogate HPV marker (p16) will be reported separately. Case has been reviewed in consultation with Dr. Melara who concurs with the above diagnosis. IDC:SJ MICROSCOPIC DESCRIPTION Slides are reviewed. GROSS DESCRIPTION A - Received is a metallic endoscopic cytobrush with adherent minute fragments of hernandez-red tissue brush in 2 ml of clear red fluid and labeled with the patient's name and and designated per the requisition as ECC. The material is dislodged from the brush and submitted for cytology preparation including cell block. B - Received in fixative is one container labeled with the patient's name and designated 12 o'clock. The specimen consists of multiple irregular fragments of light hernandez soft tissue mixed with mucoid tissue that in aggregate measure 1.0 x 0.2 x 0.1 cm. The specimen is totally submitted in one cassette. / NAA:sarah 11/16/2022 TC:3 CPT: 34312 x2
--- NOTE | 2022-11-15 | IMM_PTH ---
PATIENT: LOC SIMEON LOC: [facility] U#:[id number] AGE/SX: 37/F ROOM: RE11/15/[address]: Dr. Myranda Cazares DO : 1985 BED: DIS: 11/15/2022 SPEC #: [id number] RECD: 11/19/22 14:39 STATUS: MARCIA REQ #: [id number] SATYA: 11/15/22 00:[address]: Myranda Cazares DEPT: IMMUNOHISTOCHEMISTRY RECD BY: Karrie Butterfield ENTERED: 11/19/22 14:40 SP TYPE: IMMUNO OTHR DR: Dr. Renee Morse MD Tissues: B - Uterine cervix, NOS Procedures: p16 (initial) KI-67 (add) PHYSICIAN & INSTITUTION [facility] [id number] SPECIMEN INFORMATION: Tissue Source: B - Cervix at 12 o'clock Clinical Info: ASCUS, HPV positive Specimen Number: [id number] CPT code: 81252, 02421 METHODOLOGY: Deparaffinized sections of prefer/formalin-fixed tissue or PAP/DQ stained slides are incubated with monoclonal/polyclonal antibodies/oligonucleotide probes. Localization is made via biotin free immunoperoxidase method. Appropriate controls are performed and reacted as expected. Results on target cell population are indicated in the following table: RESULTS: ANTIBODY / CLONE RESULT Block B P16 (E6H4) positive, patchy to focal block-like Ki-67 (30-9) positive, mild to moderate These tests were developed and their performance characteristics determined by [facility]. They may not have been cleared or approved by the U.S. Food and Drug Administration. The FDA has determined that such clearance or approval is not necessary. The above immunohistochemical/dualISH markers are ordered and reviewed by the Pathologist. INTERPRETATION: B. Cervix at 12 o'clock, biopsy: Mild and focal moderate squamous dysplasia, AUTUMN I-II (HSIL). AM:sarah 11/20/2022
== END | disposition home or self-care (01) ==
LOC: LABSPEC 15:51
PROVIDERS: PCP Internal Medicine; Referring Provider Obstetrics & Gynecology; Visit Provider Obstetrics & Gynecology
DX: N87.1 Moderate cervical dysplasia (principal); N72 Inflammatory disease of cervix uteri
CPT/HCPCS: 88305; 88341; 88342

== ENCOUNTER 2023-02-14 09:26 | Outpatient (CLI) | payer MEDICAID, SELFPAY ==
[2023-02-14 09:44] LABS: Hematocrit 42.7 % (37-47); Hemoglobin 14.8 g/dL (12.0-15.0); Mean Corp Hgb Conc 34.7 g/dL (32-36); Mean Corpuscular Hgb 31.8 pg (27.0-32.0); Mean Corpuscular Volume 91.8 fL (81-99); Mean Platelet Vol. 9.2 fl (6.2-12.0); Platelet Count 227 K/mm3 (150-450); RBC Distribution Width CV 12.3 % (11.6-14.6); RBC Distribution Width SD 40.8 fl (35.1-43.9); Red Blood Count 4.65 M/mm3 (4.2-5.4); White Blood Count 9.5 K/mm3 (4.4-11.0)
--- OUTSIDE RECORDS SUMMARY | 2023-02-14 09:47 | XMS RPT_ITS | CCD ---
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 Maternal Grandmother Diabetes Maternal Grandmother Stroke Maternal Grandmother Alzheimer's Disease Maternal Grandmother Heart Maternal Grandfather Hypertension Maternal Grandfather Stroke Paternal Grandmother Alzheimer's Disease Paternal Grandmother Alcohol/Drug Paternal Grandfather etoh Diabetes Paternal Grandfather Heart Paternal Grandfather Alcohol/Drug Paternal Aunt Alcohol/Drug Paternal Aunt ETOH Alcohol/Drug Paternal Uncle ETOH Alcohol/Drug Paternal Uncle Thyroid Maternal Aunt Social History Tobacco Use Smoking status: Former Packs/day: 1.00 Years: 4.00 Pack years: 4.00 Types: Cigarettes Smokeless tobacco: Never Tobacco comments: quit december 2019 Substance Use Topics Alcohol use: Not Currently Comment: quit drinking Drug use: No PHYSICAL EXAM BP 122/76 Pulse 80 Temp 36.6 ?C (97.9 ?F) (Temporal) Resp 16 Wt 119.7 kg (264 lb) LMP 12/26/2021 (Exact Date) SpO2 99% BMI 40.14 kg/m? General Appearance: well appearing, in no acute distress, alert Skin: wound with scab intact without redness, edema, or drainage. Health maintenance reviewed with patient: HEPATITIS B(1 of 3 - 3-dose series) Never done COVID-19 VACCINE(1) Never done DTAP,TDAP,TD(1 - Tdap) Never done HPV TESTING Never done PAP TESTING due on 11/19/2015 INFLUENZA(1) Never done DEPRESSION ASSESSMENT Never done HEPATITIS C SCREENING Completed HIV SCREENING Completed DATA REVIEWED: No new labs ASSESSMENT/PLAN: 1. Chemical burn - ICD9: 949.0, ICD10: T30.4 - healing well, follow up for any new symptoms or return of redness, drainage, tende (more content not included)... [facility] 03-05-2022 History of Presen t illness Narrative CC: Patient presents with: Recheck: Follow up chemical burn HPI Loc Peraza is a 37 year old female who presents today for follow up on chemical burn. Was seen last Saturday after an urgent care follow-up. 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 Burning sensation was located left thigh. At home placed A&D ointment and covered it which caused it to become infected so [facility] went to [facility]. Was ordered an antibiotic ointment and dosage of cephalexin which she finished 4 days ago. Wanted to come in an have it re-evaluated as the scab was accidentally pulled off wound yesterday and wound bed is yellow. At our last appointment no redness or concerns for infection but scab had accidentally been removed revealing a red wound bed with yellow slough. Today returns and feels it is healing well. Denies any redness drainage fever chills or new concern. Work will not place her elsewhere to not be around this chemical once every 14 days for the hour it is required even though she has no issue with any other the other chemicals she uses. Is going to talk to the [employer] regarding this and apply for a different position in the process. REVIEW OF SYSTEMS General: no fevers, no chills, no night sweats, no recurrent infections, no change in appetite, no change in energy, and no significant changes in weight Respiratory: no cough, no wheezing, no shortness of breath, no hemoptysis Cardiovascular: no chest pain, no chest pressure, no palpitations, and no swelling PAST MEDICAL HISTORY Diagnosis Date Abnormal glandular Papanicolaou smear of cervix 2005 Abn. Pap smear (cervix) depression 2002 with 1st child Tobacco abuse PAST SURGICAL HISTORY Procedure Laterality Date TONSILLECTOMY PRIMARY/SECONDARY <AGE 11 Tonsillectomy ALLERGIES Seasonal Allergies MEDICATIONS mupirocin (BACTROBAN) 2 % ointment Apply 1 application to affected area three times daily. vit 13-nadk-zskrs-dha 29 mg iron-1 mg -250 mg cmpk Take 1 tablet by mouth once daily. escitalopram oxalate (LEXAPRO) 5 mg tablet Take 1 tablet by mouth once daily. Start with 5 mgs daily for a month and then increase it ot 10 mgs ergocalciferol 50,000 unit capsule (VITAMIN D2, DRISDOL) Take 1 capsule by mouth two times a week. TO BE TAKEN ORALLY DIRECTED. Take 1 tablet by mouth twice weekly [id number], then decrease to 1 tablet weekly. gabapentin (NEURONTIN) 100 mg capsule Take 200 mg by mouth. (Patient not taking: Reported on 07/19/2020) oxyCODONE IR (ROXICODONE) 5 mg immediate release tablet Take 5 mg by mouth. (Patient not taking: Reported on 07/19/2020) methylPREDNISolone (MEDROL DOSE-PACK) 4 mg Dose-Pack As Instructed per package (Patient not taking: Reported on 01/05/2020 ) phenazopyridine (PYRIDIUM, GERIDIUM) 200 mg tablet Take 1 tablet by mouth three times daily as needed. (Patient not taking: Reported on 07/19/2020 ) FAMILY HISTORY Problem Relation Age of Onset other (hypoglycemia) Mother Arthritis Maternal Grandmother Diabetes Maternal Grandmother Stroke Maternal Grandmother Alzheimer's Disease Maternal Grandmother Heart Maternal Grandfather Hypertension Maternal Grandfather Stroke Paternal Grandmother Alzheimer's Disease Paternal Grandmother Alcohol/Drug Paternal Grandfather etoh Diabetes Paternal Grandfather Heart Paternal Grandfather Alcohol/Drug Paternal Aunt Alcohol/Drug Paternal Aunt ETOH Alcohol/Drug Paternal Uncle ETOH Alcohol/Drug Paternal Uncle Thyroid Maternal Aunt Social History Tobacco Use Smoking status: Former Packs/day: 1.00 Years: 4.00 Pack years: 4.00 Types: Cigarettes Smokeless tobacco: Never Tobacco comments: quit december 2019 Substance Use Topics Alcohol use: Not Currently Comment: quit drinking Drug use: No PHYSICAL EXAM BP 122/76 Pulse 80 Temp 36.6 C (97.9 F) (Temporal) Resp 16 Wt 119.7 kg (264 lb) LMP 12/26/2021 (Exact Date) SpO2 99% BMI 40.14 kg/m General Appearance: well appearing, in no acute distress, alert Skin: wound with scab intact without redness, edema, or drainage. Health maintenance reviewed with patient: HEPATITIS B(1 of 3 - 3-dose series) Never done COVID-19 VACCINE(1) Never done DTAP,TDAP,TD(1 - Tdap) Never done HPV TESTING Never done PAP TESTING due on 11/19/2015 INFLUENZA(1) Never done DEPRESSION ASSESSMENT Never done HEPATITIS C SCREENING Completed HIV SCREENING Completed DATA REVIEWED: No new labs ASSESSMENT/PLAN: 1. Chemical burn - ICD9: 949.0, ICD10: T30.4 - healing well, follow up for any new symptoms or return of redness, drainage, tenderness, or edema. - wear PPE as directed by work prior to coming into contact with chemical and remove after use, follow up for any further dixon Prescription instructions reviewed with patient as applicable. Potential red flag symptoms discussed with the patient. Reviewed appropriate action plan to take if red flag symptoms occur. Patient agreeable to treatment plan. Piper Dee APRN.CNP documented in this encounter [facility] 03-01-2022 Note HNO ID: [id number] Author: Piper Dee APRN.ROMEO Service: ? Author Type: Nurse Practitioner Type: Progress Notes Filed: 03/01/2022 2:07 PM Note Text: CC: Patient presents with: Recheck: UC follow up, chemical burn HPI Loc Peraza is a 37 year old female who presents today for Follow up on chemical burn. Burn occurred almost 2 weeks ago at work by getting a caustic railroad car cleaner on her scrubs which was in place for 8 hours but did try to to clean off the area and her thigh area which was burning. Burning sensation was located left thigh. At home placed AANDD ointment and covered it which caused it to become infected so [facility] went to [facility]. Was ordered an antibiotic ointment and dosage of cephalexin which she finished 4 days ago. Wanted to come in an have it re-evaluated as the scab was accidentally pulled off wound yesterday and wound bed is yellow. Denies fever, chills, shortness of breath, chest pain, increased redness, or foul smelling drainage. Patient is 9 weeks and concerned with continued use of these caustic chemicals and irritation of the skin. She is exposed to this regularly and usually only has minor skin irritation but is very nervous to have another wound like this while . REVIEW OF SYSTEMS General: no fevers, no chills, no night sweats, no recurrent infections, no change in appetite, no change in energy, and no significant changes in weight Respiratory: no cough, no wheezing, no shortness of breath, no hemoptysis Cardiovascular: no chest pain, no chest pressure, no palpitations, and no swelling GI: No nausea, vomiting, or diarrhea Neurologic: No headache, weakness, numbness, tingling, dizziness, syncope. PAST MEDICAL HISTORY Diagnosis Date Abnormal glandular Papanicolaou smear of cervix 2005 Abn. Pap smear (cervix) depression 2002 with 1st child Tobacco abuse PAST SURGICAL HISTORY Procedure Laterality Date TONSILLECTOMY PRIMARY/SECONDARY Tonsillectomy ALLERGIES Seasonal Allergies MEDICATIONS mupirocin (BACTROBAN) 2 % ointment Apply 1 application to affected area three times daily. vit 35-ctll-ccagm-dha 29 mg iron-1 mg -250 mg cmpk Take 1 tablet by mouth once daily. escitalopram oxalate (LEXAPRO) 5 mg tablet Take 1 tablet by mouth once daily. Start with 5 mgs daily for a month and then increase it ot 10 mgs ergocalciferol 50,000 unit capsule (VITAMIN D2, DRISDOL) Take 1 capsule by mouth two times a week. TO BE TAKEN ORALLY DIRECTED. Take 1 tablet by mouth twice weekly [id number], then decrease to 1 tablet weekly. gabapentin (NEURONTIN) 100 mg capsule Take 200 mg by mouth. (Patient not taking: Reported on 07/19/2020) oxyCODONE IR (ROXICODONE) 5 mg immediate release tablet Take 5 mg by mouth. (Patient not taking: Reported on 07/19/2020) methylPREDNISolone (MEDROL DOSE-PACK) 4 mg Dose-Pack As Instructed per package (Patient not taking: Reported on 01/05/2020 ) phenazopyridine (PYRIDIUM, GERIDIUM) 200 mg tablet Take 1 tablet by mouth three times daily as needed. (Patient not taking: Reported on 07/19/2020 ) FAMILY HISTORY Problem Relation Age of Onset other (hypoglycemia) Mother Arthritis Maternal Grandmother Diabetes Maternal Grandmother Stroke Maternal Grandmother Alzheimer's Disease Maternal Grandmother Heart Maternal Grandfather Hypertension Maternal Grandfather Stroke Paternal Grandmother Alzheimer's Disease Paternal Grandmother Alcohol/Drug Paternal Grandfather etoh Diabetes Paternal Grandfather Heart Paternal Grandfather Alcohol/Drug Paternal Aunt Alcohol/Drug Paternal Aunt ETOH Alcohol/Drug Paternal Uncle ETOH Alcohol/Drug Paternal Uncle Thyroid Maternal Aunt Social History Tobacco Use Smoking status: Former Packs/day: 1.00 Years: 4.00 Pack years: 4.00 Types: Cigarettes Smokeless tobacco: Never Tobacco comments: quit december 2019 Substance Use Topics Alcohol use: Not Currently Comment: quit drinking Drug use: No PHYSICAL EXAM BP 128/78 Pulse 97 Temp 36.9 ?C (98.5 ?F) (Temporal) Resp 16 Wt 119.7 kg (264 lb) LMP 12/26/2021 (Exact Date) SpO2 96% BMI 40.14 kg/m? General Appearance: well appearing, in no acute distress, alert Skin: wound ulceration to left thigh estimation of 6 cm but patient feels is smaller in size then previous, without redness, open areas or drainage. Does have some tenderness to palpation of wound. Lower burn is well approximated and healed. Health maintenance reviewed with patient: HEPATITIS B(1 of 3 - 3-dose series) Never done COVID-19 VACCINE(1) Never done DTAP,TDAP,TD(1 - Tdap) Never done HPV TESTING Never done PAP TESTING due on 11/19/2015 INFLUENZA(1) Never done DEPRESSION ASSESSMENT Never done HEPATITIS C SCREENING Completed HIV SCREENING Completed DATA REVIEWED: No new labs ASSESSMENT/PLAN: 1. Chemical burn - ICD9: 949.0, ICD10: T30.4 Wound healing well, no sign of current (more content not included)... [facility] 03-01-2022 History of Presen t illness Narrative CC: Patient presents with: Recheck: follow up, chemical burn HPI Loc Peraza is a 37 year old female who presents today for Follow up on chemical burn. Burn occurred almost 2 weeks ago at work by getting a caustic railroad car cleaner on her scrubs which was in place for 8 hours but did try to to clean off the area and her thigh area which was burning. Burning sensation was located left thigh. At home placed A&D ointment and covered it which caused it to become infected so [facility] went to [facility]. Was ordered an antibiotic ointment and dosage of cephalexin which she finished 4 days ago. Wanted to come in an have it re-evaluated as the scab was accidentally pulled off wound yesterday and wound bed is yellow. Denies fever, chills, shortness of breath, chest pain, increased redness, or foul smelling drainage. Patient is 9 weeks and concerned with continued use of these caustic chemicals and irritation of the skin. She is exposed to this regularly and usually only has minor skin irritation but is very nervous to have another wound like this while . REVIEW OF SYSTEMS General: no fevers, no chills, no night sweats, no recurrent infections, no change in appetite, no change in energy, and no significant changes in weight Respiratory: no cough, no wheezing, no shortness of breath, no hemoptysis Cardiovascular: no chest pain, no chest pressure, no palpitations, and no swelling GI: No nausea, vomiting, or diarrhea Neurologic: No headache, weakness, numbness, tingling, dizziness, syncope. PAST MEDICAL HISTORY Diagnosis Date Abnormal glandular Papanicolaou smear of cervix 2005 Abn. Pap smear (cervix) depression 2002 with 1st child Tobacco abuse PAST SURGICAL HISTORY Procedure Laterality Date TONSILLECTOMY PRIMARY/SECONDARY <AGE 11 Tonsillectomy ALLERGIES Seasonal Allergies MEDICATIONS mupirocin (BACTROBAN) 2 % ointment Apply 1 application to affected area three times daily. vit 69-wajx-uqjmb-dha 29 mg iron-1 mg -250 mg cmpk Take 1 tablet by mouth once daily. escitalopram oxalate (LEXAPRO) 5 mg tablet Take 1 tablet by mouth once daily. Start with 5 mgs daily for a month and then increase it ot 10 mgs ergocalciferol 50,000 unit capsule (VITAMIN D2, DRISDOL) Take 1 capsule by mouth two times a week. TO BE TAKEN ORALLY DIRECTED. Take 1 tablet by mouth twice weekly [id number], then decrease to 1 tablet weekly. gabapentin (NEURONTIN) 100 mg capsule Take 200 mg by mouth. (Patient not taking: Reported on 07/19/2020) oxyCODONE IR (ROXICODONE) 5 mg immediate release tablet Take 5 mg by mouth. (Patient not taking: Reported on 07/19/2020) methylPREDNISolone (MEDROL DOSE-PACK) 4 mg Dose-Pack As Instructed per package (Patient not taking: Reported on 01/05/2020 ) phenazopyridine (PYRIDIUM, GERIDIUM) 200 mg tablet Take 1 tablet by mouth three times daily as needed. (Patient not taking: Reported on 07/19/2020 ) FAMILY HISTORY Problem Relation Age of Onset other (hypoglycemia) Mother Arthritis Maternal Grandmother Diabetes Maternal Grandmother Stroke Maternal Grandmother Alzheimer's Disease Maternal Grandmother Heart Maternal Grandfather Hypertension Maternal Grandfather Stroke Paternal Grandmother Alzheimer's Disease Paternal Grandmother Alcohol/Drug Paternal Grandfather etoh Diabetes Paternal Grandfather Heart Paternal Grandfather Alcohol/Drug Paternal Aunt Alcohol/Drug Paternal Aunt ETOH Alcohol/Drug Paternal Uncle ETOH Alcohol/Drug Paternal Uncle Thyroid Maternal Aunt Social History Tobacco Use Smoking status: Former Packs/day: 1.00 Years: 4.00 Pack years: 4.00 Types: Cigarettes Smokeless tobacco: Never Tobacco comments: quit december 2019 Substance Use Topics Alcohol use: Not Currently Comment: quit drinking Drug use: No PHYSICAL EXAM BP 128/78 Pulse 97 Temp 36.9 C (98.5 F) (Temporal) Resp 16 Wt 119.7 kg (264 lb) LMP 12/26/2021 (Exact Date) SpO2 96% BMI 40.14 kg/m General Appearance: well appearing, in no acute distress, alert Skin: wound ulceration to left thigh estimation of 6 cm but patient feels is smaller in size then previous, without redness, open areas or drainage. Does have some tenderness to palpation of wound. Lower burn is well approximated and healed. Health maintenance reviewed with patient: HEPATITIS B(1 of 3 - 3-dose series) Never done COVID-19 VACCINE(1) Never done DTAP,TDAP,TD(1 - Tdap) Never done HPV TESTING Never done PAP TESTING due on 11/19/2015 INFLUENZA(1) Never done DEPRESSION ASSESSMENT Never done HEPATITIS C SCREENING Completed HIV SCREENING Completed DATA REVIEWED: No new labs ASSESSMENT/PLAN: 1. Chemical burn - ICD9: 949.0, ICD10: T30.4 Wound healing well, no sign of current infection. Continue with antibiotic ointment and keep area clean and dry - follow up on Saturday for re-evaluation - get urgently evaluated for redness, drainage, fever, increased pain, or any other urgent concern. - patient asking for letter for work so she can avoid contact with this caustic chemical while . Name of chemical not known. Letter given but explained to patient that without name of chemical her work may require additional information. Also, if unable to avoid chemical patient needs to wear protective gear at all times when using this product. Prescription instructions reviewed with patient as applicable. Potential red flag symptoms discussed with the patient. Reviewed appropriate action plan to take if red flag symptoms occur. Patient agreeable to treatment plan. Piper Dee APRN.CNP documented in this encounter [facility] 02-17-2022 Note HNO ID: [id number] Author: Aleah Hernandez APRN.CNP Service: ? Author Type: Nurse Practitioner Type: Progress Notes Filed: 02/17/2022 11:02 AM Note Text: Subjective Burn Locjhoana Peraza is a 37 year old female who presents with a burn on her left thigh. This happened 3 days ago at work. She was working with a caustic railroad car cleaner, [employer] and some of it spilled on her scrubs. She wiped some of it off but some of it was on her pants for 8 hours. She cleaned it after she got work and applied A AND D ointment to it. She states the area is tender if she touches it. She has not had a fever or chills. Review of Systems Constitutional: Negative for chills and fever. Respiratory: Negative. Cardiovascular: Negative. Musculoskeletal: Negative for joint pain and myalgias. Skin: Negative for itching and rash. BP 112/66 Pulse 82 Temp 36.8 ?C (98.3 ?F) Resp 16 Wt 119.7 kg (264 lb) LMP 12/26/2021 (Exact Date) SpO2 98% BMI 40.14 kg/m? PAST MEDICAL HISTORY Diagnosis Date Abnormal glandular Papanicolaou smear of cervix 2005 Abn. Pap smear (cervix) depression 2002 with 1st child Tobacco abuse PAST SURGICAL HISTORY Procedure Laterality Date TONSILLECTOMY PRIMARY/SECONDARY Tonsillectomy ALLERGIES Seasonal Allergies MEDICATIONS vit 17-nilp-fzhjb-dha 29 mg iron-1 mg -250 mg cmpk Take 1 tablet by mouth once daily. cephALEXin (KEFLEX) 500 mg capsule Take 1 capsule by mouth three times daily for 7 days. mupirocin (BACTROBAN) 2 % ointment Apply 1 application to affected area three times daily. escitalopram oxalate (LEXAPRO) 5 mg tablet Take 1 tablet by mouth once daily. Start with 5 mgs daily for a month and then increase it ot 10 mgs ergocalciferol 50,000 unit capsule (VITAMIN D2, DRISDOL) Take 1 capsule by mouth two times a week. TO BE TAKEN ORALLY DIRECTED. Take 1 tablet by mouth twice weekly [id number], then decrease to 1 tablet weekly. gabapentin (NEURONTIN) 100 mg capsule Take 200 mg by mouth. (Patient not taking: Reported on 07/19/2020) oxyCODONE IR (ROXICODONE) 5 mg immediate release tablet Take 5 mg by mouth. (Patient not taking: Reported on 07/19/2020) methylPREDNISolone (MEDROL DOSE-PACK) 4 mg Dose-Pack As Instructed per package (Patient not taking: Reported on 01/05/2020 ) phenazopyridine (PYRIDIUM, GERIDIUM) 200 mg tablet Take 1 tablet by mouth three times daily as needed. (Patient not taking: Reported on 07/19/2020 ) FAMILY HISTORY Problem Relation Age of Onset other (hypoglycemia) Mother Arthritis Maternal Grandmother Diabetes Maternal Grandmother Stroke Maternal Grandmother Alzheimer's Disease Maternal Grandmother Heart Maternal Grandfather Hypertension Maternal Grandfather Stroke Paternal Grandmother Alzheimer's Disease Paternal Grandmother Alcohol/Drug Paternal Grandfather etoh Diabetes Paternal Grandfather Heart Paternal Grandfather Alcohol/Drug Paternal Aunt Alcohol/Drug Paternal Aunt ETOH Alcohol/Drug Paternal Uncle ETOH Alcohol/Drug Paternal Uncle Thyroid Maternal Aunt Social History Tobacco Use Smoking status: Former Packs/day: 1.00 Years: 4.00 Pack years: 4.00 Types: Cigarettes Smokeless tobacco: Never Tobacco comments: quit december 2019 Substance Use Topics Alcohol use: Not Currently Comment: quit drinking Drug use: No Objective Physical Exam Vitals and nursing note reviewed. Constitutional: Appearance: Normal appearance. Cardiovascular: Rate and Rhythm: Normal rate. Pulmonary: Effort: Pulmonary effort is normal. Skin: General: Skin is warm and dry. Capillary Refill: Capillary refill takes less than 2 seconds. Findings: Erythema present. No rash. Neurological: Mental Status: She is alert. ASSESSMENT/PLAN: 1. Chemical burn of left thigh, initial encounter - ICD9: 945.06, ICD10: T24.412A (primary diagnosis) - use antibiotic ointment as prescribed. - MSDS sheet provided to patient. 2. Skin infection - ICD9: 686.9, ICD10: L08.9 - Begin treatment with Cephalaxin (Keflex) - CEPHALEXIN 500 MG CAPSULE - Follow-up with your PCP in 3-5 days if symptoms have not improved or sooner if symptoms worsen - Discussed red flags and need for immediate medical evaluation if any occur. - Discussed supportive care treatment with fluids, rest and analgesia. - Discussed expected course of illness Aleah Hernandez APRN.[facility] 02-17-2022 History of Presen t illness Narrative Images from the original note were not included. Subjective Burn Loc Peraza is a 37 year old female who presents with a burn on her left thigh. This happened 3 days ago at work. 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 She wiped some of it off but some of it was on her pants for 8 hours. She cleaned it after she got work and applied A & D ointment to it. She states the area is tender if she touches it. She has not had a fever or chills. Review of Systems Constitutional: Negative for chills and fever. Respiratory: Negative. Cardiovascular: Negative. Musculoskeletal: Negative for joint pain and myalgias. Skin: Negative for itching and rash. BP 112/66 Pulse 82 Temp 36.8 C (98.3 F) Resp 16 Wt 119.7 kg (264 lb) LMP 12/26/2021 (Exact Date) SpO2 98% BMI 40.14 kg/m PAST MEDICAL HISTORY Diagnosis Date Abnormal glandular Papanicolaou smear of cervix 2005 Abn. Pap smear (cervix) depression 2002 with 1st child Tobacco abuse PAST SURGICAL HISTORY Procedure Laterality Date TONSILLECTOMY PRIMARY/SECONDARY <AGE 11 Tonsillectomy ALLERGIES Seasonal Allergies MEDICATIONS vit [id number] 29 mg iron-1 mg -250 mg cmpk Take 1 tablet by mouth once daily. cephALEXin (KEFLEX) 500 mg capsule Take 1 capsule by mouth three times daily for 7 days. mupirocin (BACTROBAN) 2 % ointment Apply 1 application to affected area three times daily. escitalopram oxalate (LEXAPRO) 5 mg tablet Take 1 tablet by mouth once daily. Start with 5 mgs daily for a month and then increase it ot 10 mgs ergocalciferol 50,000 unit capsule (VITAMIN D2, DRISDOL) Take 1 capsule by mouth two times a week. TO BE TAKEN ORALLY DIRECTED. Take 1 tablet by mouth twice weekly [id number], then decrease to 1 tablet weekly. gabapentin (NEURONTIN) 100 mg capsule Take 200 mg by mouth. (Patient not taking: Reported on 07/19/2020) oxyCODONE IR (ROXICODONE) 5 mg immediate release tablet Take 5 mg by mouth. (Patient not taking: Reported on 07/19/2020) methylPREDNISolone (MEDROL DOSE-PACK) 4 mg Dose-Pack As Instructed per package (Patient not taking: Reported on 01/05/2020 ) phenazopyridine (PYRIDIUM, GERIDIUM) 200 mg tablet Take 1 tablet by mouth three times daily as needed. (Patient not taking: Reported on 07/19/2020 ) FAMILY HISTORY Problem Relation Age of Onset other (hypoglycemia) Mother Arthritis Maternal Grandmother Diabetes Maternal Grandmother Stroke Maternal Grandmother Alzheimer's Disease Maternal Grandmother Heart Maternal Grandfather Hypertension Maternal Grandfather Stroke Paternal Grandmother Alzheimer's Disease Paternal Grandmother Alcohol/Drug Paternal Grandfather etoh Diabetes Paternal Grandfather Heart Paternal Grandfather Alcohol/Drug Paternal Aunt Alcohol/Drug Paternal Aunt ETOH Alcohol/Drug Paternal Uncle ETOH Alcohol/Drug Paternal Uncle Thyroid Maternal Aunt Social History Tobacco Use Smoking status: Former Packs/day: 1.00 Years: 4.00 Pack years: 4.00 Types: Cigarettes Smokeless tobacco: Never Tobacco comments: quit december 2019 Substance Use Topics Alcohol use: Not Currently Comment: quit drinking Drug use: No Objective Physical Exam Vitals and nursing note reviewed. Constitutional: Appearance: Normal appearance. Cardiovascular: Rate and Rhythm: Normal rate. Pulmonary: Effort: Pulmonary effort is normal. Skin: General: Skin is warm and dry. Capillary Refill: Capillary refill takes less than 2 seconds. Findings: Erythema present. No rash. Neurological: Mental Status: She is alert. ASSESSMENT/PLAN: 1. Chemical burn of left thigh, initial encounter - ICD9: 945.06, ICD10: T24.412A (primary diagnosis) - use antibiotic ointment as prescribed. - MSDS sheet provided to patient. 2. Skin infection - ICD9: 686.9, ICD10: L08.9 - Begin treatment with Cephalaxin (Keflex) - CEPHALEXIN 500 MG CAPSULE - Follow-up with your PCP in 3-5 days if symptoms have not improved or sooner if symptoms worsen - Discussed red flags and need for immediate medical evaluation if any occur. - Discussed supportive care treatment with fluids, rest and analgesia. - Discussed expected course of illness Aleah Hernandez APRN.CNP documented in this encounter [facility] 02-17-2022 Instructions Aleah Hernandez APRN.CNP - 02/17/2022 10:49 AM EST ASSESSMENT/PLAN: 1. Chemical burn of left thigh, initial encounter - ICD9: 945.06, ICD10: T24.412A (primary diagnosis) - use antibiotic ointment as prescribed. - MSDS sheet provided to patient. 2. Skin infection - ICD9: 686.9, ICD10: L08.9 - Begin treatment with Cephalaxin (Keflex) - CEPHALEXIN 500 MG CAPSULE - Follow-up with your PCP in 3-5 days if symptoms have not improved or sooner if symptoms worsen - Discussed red flags and need for immediate medical evaluation if any occur. - Discussed supportive care treatment with fluids, rest and analgesia. - Discussed expected course of illness Aleah Hernandez APRN.CNP Dixon You have been seen for a burn. There are three types of dixon: First-degree dixon. These are relatively minor dixon on the very top layer of skin. The skin is red and painful but there are no blisters. These dixon normally heal without scars. A bad sunburn is a type of first-degree burn. Second-degree dixon. These dixon are more serious. They involve deeper layers of the skin. The skin is red, painful, with blisters. Second-degree dixon may cause scars. Third-degree dixon. These dixon involve deep layers of the skin. They always cause scars. These dixon may or may not be painful. Take off old dressings every day. Wash burn gently with soap and water. Put on a clean dressing as instructed. If the dressing sticks to the wound, slightly moisten it with water. This way, it can come off easier. Put an antibiotic ointment on the burn once a day. Cover it with a clean, dry gauze dressing. You can buy Polysporin ointment or Bacitracin ointment at the store. YOU SHOULD SEEK MEDICAL ATTENTION IMMEDIATELY, EITHER HERE OR AT THE NEAREST EMERGENCY DEPARTMENT, IF ANY OF THE FOLLOWING OCCURS: You see redness or swelling. There are red streaks coming out from the wound. The wound smells bad or has a lot of drainage. Pain when moving the extremities (arms or legs) and / or swollen lymph nodes (nodules normally found in the groin, armpit and neck). You have fever (temperature higher than 100.4 F / 38 C), chills, worse pain and / or swelling. documented in this encounter [facility] 02-09-2022 Note HNO ID: [id number] Author: Eda Dunn PA-C Service: ? Author Type: Physician Cis Coordinator Type: Progress Notes Filed: 02/09/2022 2:28 PM Note Text: Were askedThis note was created using [employer]are[employer]. Shameka Peraza is a 37 year old female. HPI Presents with a chief complaint of positive test at home. Her last menstrual cycle was December 26. She states states her partner and her really trying but they were not trying to prevent either. This will be her third . She has a 20-year-old and a 10-year-old. She has had nausea and breast tenderness. She denies any vaginal discharge or spotting. She is not currently on any medications daily. Not taking a . Review of Systems Constitutional: Positive for fatigue. HENT: Negative. Respiratory: Negative. Cardiovascular: Negative. Gastrointestinal: Positive for nausea. Negative for abdominal pain, diarrhea and vomiting. Genitourinary: Missed menses Musculoskeletal: Negative. All other systems reviewed and are negative. PAST MEDICAL HISTORY Diagnosis Date Abnormal glandular Papanicolaou smear of cervix 2005 Abn. Pap smear (cervix) depression 2002 with 1st child Tobacco abuse Current Outpatient Medications Medication Sig Dispense Refill escitalopram oxalate (LEXAPRO) 5 mg tablet Take 1 tablet by mouth once daily. Start with 5 mgs daily for a month and then increase it ot 10 mgs 90 tablet 0 ergocalciferol 50,000 unit capsule (VITAMIN D2, DRISDOL) Take 1 capsule by mouth two times a week. TO BE TAKEN ORALLY DIRECTED. Take 1 tablet by mouth twice weekly [id number], then decrease to 1 tablet weekly. 8 capsule 5 gabapentin (NEURONTIN) 100 mg capsule Take 200 mg by mouth. (Patient not taking: Reported on 07/19/2020) oxyCODONE IR (ROXICODONE) 5 mg immediate release tablet Take 5 mg by mouth. (Patient not taking: Reported on 07/19/2020) methylPREDNISolone (MEDROL DOSE-PACK) 4 mg Dose-Pack As Instructed per package (Patient not taking: Reported on 01/05/2020 ) 1 Package 0 phenazopyridine (PYRIDIUM, GERIDIUM) 200 mg tablet Take 1 tablet by mouth three times daily as needed. (Patient not taking: Reported on 07/19/2020 ) 15 tablet 0 No current facility-administered medications for this visit. PAST SURGICAL HISTORY Procedure Laterality Date TONSILLECTOMY PRIMARY/SECONDARY Tonsillectomy FAMILY HISTORY Problem Relation Age of Onset other (hypoglycemia) Mother Arthritis Maternal Grandmother Diabetes Maternal Grandmother Stroke Maternal Grandmother Alzheimer's Disease Maternal Grandmother Heart Maternal Grandfather Hypertension Maternal Grandfather Stroke Paternal Grandmother Alzheimer's Disease Paternal Grandmother Alcohol/Drug Paternal Grandfather etoh Diabetes Paternal Grandfather Heart Paternal Grandfather Alcohol/Drug Paternal Aunt Alcohol/Drug Paternal Aunt ETOH Alcohol/Drug Paternal Uncle ETOH Alcohol/Drug Paternal Uncle Thyroid Maternal Aunt Social History Tobacco Use Smoking status: Former Packs/day: 1.00 Years: 4.00 Pack years: 4.00 Types: Cigarettes Smokeless tobacco: Never Tobacco comments: quit december 2019 Substance Use Topics Alcohol use: Not Currently Comment: quit drinking Drug use: No Objective BP 110/62 Pulse 99 Temp 36.8 ?C (98.3 ?F) Resp 18 Wt 122 kg (269 lb) LMP 12/26/2021 (Exact Date) SpO2 98% BMI 40.90 kg/m? Physical Exam Vitals reviewed. Constitutional: Appearance: Normal appearance. HENT: Head: Normocephalic and atraumatic. Cardiovascular: Rate and Rhythm: Normal rate and regular rhythm. Heart sounds: Normal heart sounds. Pulmonary: Effort: Pulmonary effort is normal. Breath sounds: Normal breath sounds. Skin: General: Skin is warm and dry. Neurological: General: No focal deficit present. Mental Status: She is alert. Assessment and Plan ASSESSMENT/PLAN: 1. Missed menses - ICD9: 626.4, ICD10: N92.6 (primary diagnosis) Patient's urine is positive here. I did send a vitamin. She has an appointment at the end of February with [facility] at [facility]. Discussed not taking nsaids while , alcohol or smoking. Red flags for er care. Patient agreeable with plan. - HCG QUAL UR B/O 2. Early stage of - ICD9: V22.2, ICD10: Z34.90 Eda Dunn PA-C [facility] 02-09-2022 History of Presen t illness Narrative Were askedThis note was created using Scoutriter. Subjective oLc Peraza is a 37 year old female. HPI Presents with a chief complaint of positive test at home. Her last menstrual cycle was December 26. She states states her partner and her really trying but they were not trying to prevent either. This will be her third . She has a 20-year-old and a 10-year-old. She has had nausea and breast tenderness. She denies any vaginal discharge or spotting. She is not currently on any medications daily. Not taking a . Review of Systems Constitutional: Positive for fatigue. HENT: Negative. Respiratory: Negative. Cardiovascular: Negative. Gastrointestinal: Positive for nausea. Negative for abdominal pain, diarrhea and vomiting. Genitourinary: Missed menses Musculoskeletal: Negative. All other systems reviewed and are negative. PAST MEDICAL HISTORY Diagnosis Date Abnormal glandular Papanicolaou smear of cervix 2005 Abn. Pap smear (cervix) depression 2002 with 1st child Tobacco abuse Current Outpatient Medications Medication Sig Dispense Refill escitalopram oxalate (LEXAPRO) 5 mg tablet Take 1 tablet by mouth once daily. Start with 5 mgs daily for a month and then increase it ot 10 mgs 90 tablet 0 ergocalciferol 50,000 unit capsule (VITAMIN D2, DRISDOL) Take 1 capsule by mouth two times a week. TO BE TAKEN ORALLY DIRECTED. Take 1 tablet by mouth twice weekly [id number], then decrease to 1 tablet weekly. 8 capsule 5 gabapentin (NEURONTIN) 100 mg capsule Take 200 mg by mouth. (Patient not taking: Reported on 07/19/2020) oxyCODONE IR (ROXICODONE) 5 mg immediate release tablet Take 5 mg by mouth. (Patient not taking: Reported on 07/19/2020) methylPREDNISolone (MEDROL DOSE-PACK) 4 mg Dose-Pack As Instructed per package (Patient not taking: Reported on 01/05/2020 ) 1 Package 0 phenazopyridine (PYRIDIUM, GERIDIUM) 200 mg tablet Take 1 tablet by mouth three times daily as needed. (Patient not taking: Reported on 07/19/2020 ) 15 tablet 0 No current facility-administered medications for this visit. PAST SURGICAL HISTORY Procedure Laterality Date TONSILLECTOMY PRIMARY/SECONDARY <AGE 11 Tonsillectomy FAMILY HISTORY Problem Relation Age of Onset other (hypoglycemia) Mother Arthritis Maternal Grandmother Diabetes Maternal Grandmother Stroke Maternal Grandmother Alzheimer's Disease Maternal Grandmother Heart Maternal Grandfather Hypertension Maternal Grandfather Stroke Paternal Grandmother Alzheimer's Disease Paternal Grandmother Alcohol/Drug Paternal Grandfather etoh Diabetes Paternal Grandfather Heart Paternal Grandfather Alcohol/Drug Paternal Aunt Alcohol/Drug Paternal Aunt ETOH Alcohol/Drug Paternal Uncle ETOH Alcohol/Drug Paternal Uncle Thyroid Maternal Aunt Social History Tobacco Use Smoking status: Former Packs/day: 1.00 Years: 4.00 Pack years: 4.00 Types: Cigarettes Smokeless tobacco: Never Tobacco comments: quit december 2019 Substance Use Topics Alcohol use: Not Currently Comment: quit drinking Drug use: No Objective BP 110/62 Pulse 99 Temp 36.8 C (98.3 F) Resp 18 Wt 122 kg (269 lb) LMP 12/26/2021 (Exact Date) SpO2 98% BMI 40.90 kg/m Physical Exam Vitals reviewed. Constitutional: Appearance: Normal appearance. HENT: Head: Normocephalic and atraumatic. Cardiovascular: Rate and Rhythm: Normal rate and regular rhythm. Heart sounds: Normal heart sounds. Pulmonary: Effort: Pulmonary effort is normal. Breath sounds: Normal breath sounds. Skin: General: Skin is warm and dry. Neurological: General: No focal deficit present. Mental Status: She is alert. Assessment and Plan ASSESSMENT/PLAN: 1. Missed menses - ICD9: 626.4, ICD10: N92.6 (primary diagnosis) Patient's urine is positive here. I did send a vitamin. She has an appointment at the end of February with [facility] at [facility]. Discussed not taking nsaids while , alcohol or smoking. Red flags for er care. Patient agreeable with plan. - HCG QUAL UR B/O 2. Early stage of - ICD9: V22.2, ICD10: Z34.90 Eda Dunn PA-C documented in this encounter [facility] 10-13-2021 Note HNO ID: [id number] Author: Connie Morse MD Service: ? Author Type: Physician Type: Progress Notes Filed: 10/13/2021 1:43 PM Note Text: Reason for Visit Patient presents with: Follow Up: back pain - middle Locjhoana Peraza is a 36 year old female who presents here today for Above Complaints.. Health Maintenance HEPATITIS B(1 of 3 - 3-dose series) COVID-19 VACCINE(1) DTAP,TDAP,TD(1 - Tdap) HPV TESTING PAP TESTING HPI Patient was at a store, leaned over and felt her back passed out. She had similar lower back issues in the past. She went to the chiropractor who took xr, no mri so could not say if it was a slipped disc. She was advised leave for a few day and then light duty but work did not agree with them for light duty September 20 through October 11. The chiropractor was asked to realign the back. Due to scoliosis, she has a few more issues. When she had the pain she could not stand, up , sit, go up steps walk. The resting and alignments really helped her along with the ice. No problem-specific Assessment AND Plan notes found for this encounter. PAST MEDICAL HISTORY Diagnosis Date Abnormal glandular Papanicolaou smear of cervix 2005 Abn. Pap smear (cervix) depression 2002 with 1st child Tobacco abuse PAST SURGICAL HISTORY Procedure Laterality Date TONSILLECTOMY PRIMARY/SECONDARY Tonsillectomy FAMILY HISTORY Problem Relation Age of Onset other (hypoglycemia) Mother Arthritis Maternal Grandmother Diabetes Maternal Grandmother Stroke Maternal Grandmother Alzheimer's Disease Maternal Grandmother Heart Maternal Grandfather Hypertension Maternal Grandfather Stroke Paternal Grandmother Alzheimer's Disease Paternal Grandmother Alcohol/Drug Paternal Grandfather etoh Diabetes Paternal Grandfather Heart Paternal Grandfather Alcohol/Drug Paternal Aunt Alcohol/Drug Paternal Aunt ETOH Alcohol/Drug Paternal Uncle ETOH Alcohol/Drug Paternal Uncle Thyroid Maternal Aunt Social History Tobacco Use Smoking status: Former Packs/day: 1.00 Years: 4.00 Pack years: 4.00 Types: Cigarettes Smokeless tobacco: Never Tobacco comments: quit december 2019 Substance Use Topics Alcohol use: Not Currently Comment: quit drinking Drug use: No Past medical history, appointments, medications, allergies reviewed. Pertinent Lab/Diagnostic Studies are reviewed and discussed today Current Outpatient Medications: cetirizine (ZYRTEC) 10 mg tablet escitalopram oxalate (LEXAPRO) 5 mg tablet cyclobenzaprine (FLEXERIL) 10 mg tablet ergocalciferol 50,000 unit capsule (VITAMIN D2, DRISDOL) gabapentin (NEURONTIN) 100 mg capsule oxyCODONE IR (ROXICODONE) 5 mg immediate release tablet methylPREDNISolone (MEDROL DOSE-PACK) 4 mg Dose-Pack phenazopyridine (PYRIDIUM, GERIDIUM) 200 mg tablet Review of Systems CONSTITUTIONAL: No fevers, chills night sweats, unintended weight loss CARDIOVASCULAR: No chest pain, dyspnea, palpitations, orthopnea, PND, ankle edema. PULM: No dyspnea, unexplained cough. GI: No dysphagia/odynophagia, problematic reflux, constipation, diarrhea, changes in stool habits, hematochezia, melena. : No new urinary complaints, including dysuria, gross hematuria or pyuria. NEURO: No new balance problems, peripheral weakness/paresthesias or numbness of concern. Physical Exam BP 108/60 (BP Site: Left Arm, BP Position: Sitting, BP Cuff Size: Large Adult) Pulse 87 Temp 36.2 ?C (97.2 ?F) Resp 14 Ht 172.7 cm (5' 8 ) Wt 111.1 kg (245 lb) LMP 09/14/2015 SpO2 97% BMI 37.25 kg/m? General appearance: Well appearing, alert, in no acute distress, well nourished. Skin: Skin color, texture, turgor normal, no suspicious rashes or lesions Head: Normocephalic, no masses, lesions, tenderness or abnormalities Eyes: Anicteric sclera. Pupils are equally round and reactive to light. Extraocular movements are intact. ASSESSMENT/PLAN: 1. Encounter for gynecological examination without abnormal finding - ICD9: V72.31, ICD10: Z01.419 (primary diagnosis) - CONSULT TO GYNECOLOGY 2. Lumbar sprain, subsequent encounter - ICD9: V58.89, 847.2, ICD10: S33.5XXD I discuss that I would do her fmla 3. Prolapsed cervical intervertebral disc - ICD9: 722.0, ICD10: M50.20 Connie Morse MD [facility] 10-13-2021 History of Presen t illness Narrative Reason for Visit Patient presents with: [facility] 36 [facility] who presents here today for Above Complaints.. Health Maintenance HEPATITIS B(1 of 3 - 3-dose series) COVID-19 VACCINE(1) DTAP,TDAP,TD(1 - Tdap) HPV TESTING PAP TESTING HPI Patient was at a store, leaned over and felt her back passed out. She had similar lower back issues in the past. She went to the chiropractor who took xr, no mri so could not say if it was a slipped disc. She was advised leave for a few day and then light duty but work did not agree with them for light duty September 20 through October 11. The chiropractor was asked to realign the back. Due to scoliosis, she has a few more issues. When she had the pain she could not stand, up , sit, go up steps walk. The resting and alignments really helped her along with the ice. No problem-specific Assessment & Plan notes found for this encounter. PAST MEDICAL HISTORY Diagnosis Date Abnormal glandular Papanicolaou smear of cervix 2005 Abn. Pap smear (cervix) depression 2002 with 1st child Tobacco abuse PAST SURGICAL HISTORY Procedure Laterality Date TONSILLECTOMY PRIMARY/SECONDARY <AGE 12 Tonsillectomy FAMILY HISTORY Problem Relation Age of Onset other (hypoglycemia) Mother Arthritis Maternal Grandmother Diabetes Maternal Grandmother Stroke Maternal Grandmother Alzheimer's Disease Maternal Grandmother Heart Maternal Grandfather Hypertension Maternal Grandfather Stroke Paternal Grandmother Alzheimer's Disease Paternal Grandmother Alcohol/Drug Paternal Grandfather etoh Diabetes Paternal Grandfather Heart Paternal Grandfather Alcohol/Drug Paternal Aunt Alcohol/Drug Paternal Aunt ETOH Alcohol/Drug Paternal Uncle ETOH Alcohol/Drug Paternal Uncle Thyroid Maternal Aunt Social History Tobacco Use Smoking status: Former Packs/day: 1.00 Years: 4.00 Pack years: 4.00 Types: Cigarettes Smokeless tobacco: Never Tobacco comments: quit december 2019 Substance Use Topics Alcohol use: Not Currently Comment: quit drinking Drug use: No Past medical history, appointments, medications, allergies reviewed. Pertinent Lab/Diagnostic Studies are reviewed and discussed today Current Outpatient Medications: cetirizine (ZYRTEC) 10 mg tablet escitalopram oxalate (LEXAPRO) 5 mg tablet cyclobenzaprine (FLEXERIL) 10 mg tablet ergocalciferol 50,000 unit capsule (VITAMIN D2, DRISDOL) gabapentin (NEURONTIN) 100 mg capsule oxyCODONE IR (ROXICODONE) 5 mg immediate release tablet methylPREDNISolone (MEDROL DOSE-PACK) 4 mg Dose-Pack phenazopyridine (PYRIDIUM, GERIDIUM) 200 mg tablet Review of Systems CONSTITUTIONAL: No fevers, chills night sweats, unintended weight loss CARDIOVASCULAR: No chest pain, dyspnea, palpitations, orthopnea, PND, ankle edema. PULM: No dyspnea, unexplained cough. GI: No dysphagia/odynophagia, problematic reflux, constipation, diarrhea, changes in stool habits, hematochezia, melena. : No new urinary complaints, including dysuria, gross hematuria or pyuria. NEURO: No new balance problems, peripheral weakness/paresthesias or numbness of concern. Physical Exam BP 108/60 (BP Site: Left Arm, BP Position: Sitting, BP Cuff Size: Large Adult) Pulse 87 Temp 36.2 C (97.2 F) Resp 14 Ht 172.7 cm (5' 8 ) Wt 111.1 kg (245 lb) LMP 09/14/2015 SpO2 97% BMI 37.25 kg/m General appearance: Well appearing, alert, in no acute distress, well nourished. Skin: Skin color, texture, turgor normal, no suspicious rashes or lesions Head: Normocephalic, no masses, lesions, tenderness or abnormalities Eyes: Anicteric sclera. Pupils are equally round and reactive to light. Extraocular movements are intact. ASSESSMENT/PLAN: 1. Encounter for gynecological examination without abnormal finding - ICD9: V72.31, ICD10: Z01.419 (primary diagnosis) - CONSULT TO GYNECOLOGY 2. Lumbar sprain, subsequent encounter - ICD9: V58.89, 847.2, ICD10: S33.5XXD I discuss that I would do her fmla 3. Prolapsed cervical intervertebral disc - ICD9: 722.0, ICD10: M50.20 Connie Morse MD documented in this encounter [facility] 10-09-2021 Miscellaneous Notes Formattin g of this note might be different from the original. Appointment scheduled. documented in this encounter [facility] Diagnosis Missed menses- Primary Absence of menstruation Early stage of state, incidental [facility] Diagnosis Chemical burn of left thigh, initial encounter- Primary Skin infection Unspecified local infection of skin and subcutaneous tissue [facility] [place] [facility] Diagnosis Chemical burn- Primary Burn of unspecified site, unspecified degree [facility] [place] [facility]* Diagnosis Chemical burn- Primary Burn of unspecified site, unspecified degree documented in this encounter [facility] Purpose Family History No Family History Records FoundNo Family History Records FoundNo Family History Records FoundNo Family History Records FoundNo Family History Records FoundNo Family History Records FoundNo Family History Records FoundNo Family History Records Found Advance Directives No Advanced Directives Records FoundDocuments on File Type Date Recorded Patient Information Technology Consultant Expl anation Advance Directives and Livin g Will 12/23/2019 9:53 PM Documents on File Type Date Recorded Patient Information Technology Consultant Expl anation Advance Directives and Livin g Will 12/23/2019 9:53 PM Documents on File Type Date Recorded Patient Information Technology Consultant Expl anation Advance Directives and Livin g Will 01/07/2020 11:43 AM Documents on File Type Date Recorded Patient Information Technology Consultant Expl anation Advance Directives and Livin g Will 01/07/2020 11:43 AM Hospital Course * Colt Saavedra, ROMEO - 12/28/2019 12:03 PM EST [facility] DISCHARGE SUMMARY PROGRESS NOTE Patient Name: Loc Uriostegui Admit Date: MR #: [id number] : 1985 [place] ISM [place] [facility] [place] (yes/no?): Yes Anticoagulant / Anti-platelet Rx? Denies Reason/Dx: n/a INJURIES: 1. Right 2nd-9th rib fractures with small hemopneumothorax and subcutaneous emphysema 2. Right frontal scalp hematoma 3. Scattered abrasions 4. Left subconjunctival hemorrhage 5. Left eyebrow laceration 6. Right scalp laceration SURGERIES/PROCEDURES: Date Operation/Procedure Provider Name 12/24/2019 Left eyebrow laceration ELISEO Palomino 12/24/2019 Left eyebrow laceration repair; laceration repair and hematoma evacuation scalp Abouhassan 12/27/2019 Right chest tube, [address] [facility] Trauma ACTIVE MEDICAL PROBLEMS: 1. Elevated lactic acid 2. Polycythemia vera 3. Hypokalemia 4. Tobacco abuse INCIDENTAL FINDINGS: 1. Chronic sacroiliitis 2. Minimal degenerative changes of the right knee 3. Small air-fluid levels noted within the right maxillary sinus, with nodular mucosal thickening DISCHARGE PLANNIN. Pending medical clearance 2. Trauma 3. Plastics TODAY' S ASSESSMENT AND PLAN OF CARE: 1. Right rib fx with hemopneumothorax: CT placed 12/24, CXR looked like it was in the chest 12/25, CXR 12/26 with rotation shows tube is not within the pleural space, reviewed imaging with Dr. Sandra 12/26, tube removed 12/26. CXR this am with stable small R apical ptx and she remains on RA. Discussed with Dr. Mcclelland today, she looks great, will discharge home. 2. Acute pain due to trauma: Multimodal regimen in place. Continue current regimen at discharge. Will need greater then 30 MEDD at discharge. See note below. 3. Left eyebrow laceration: S/p repair, remove in 5-7 days. Remove in outpatient office. 4. Concussion: Denies PCS, +LOC and head trauma. Cog eval obtained with no further needs. 5. Right scalp laceration: PRS evaluated, POD#4. REYNA with blood tinged output, PRS will leave drain in until follow up outpatient, discussed with PRS 12/27. Education provided to patient. 6. Leukocytosis: Likely reactive. Afebrile. No overt signs of infection. No need for re-check. 7. Tobacco abuse: Patient admits to smoking 1ppd. Declines need for patch at this time. 8. Scattered abrasions: Local wound care. 9. Dispo: home today Patient's pain is expected to persist for longer than seven days based on the pathology of the condition. Non-opiates have been attempted but alone have proven inadequate in controlling the pain. Patient and/or family have been advised of the benefits and risks of the opioid analgesic, including the potential for addiction. The total morphine equivalent dose (MED) of 30 per day is being exceeded. In my judgement, the patient suffers from an injury of such severity that pain cannot be managed with this limitation. The prescribed dosage is the lowest thought reasonable and consistent with the patient's condition. Patient condition includes (pick one): Right rib fractures 2-9 Condition for which opioids are being prescribed: acute pain Rx: oxycodone 5mg Q4 hours prn [NO REFILLS HAVE BEEN WRITTEN FOR] Inpatient Consults: Procedures Inpatient consult to Trauma Surgery Hospitalize Patient To:____ Inpatient consult to Plastic Surgery Inpatient consult to Chemical Dependency Inpatient Procedures: No admission procedures for hospital encounter. Allergies Reviewed: Patient has no known allergies. Discharge Medications: Medication List You have not been prescribed any medications. Diet: Regular Follow-up Appointments / Plans: Samira Wells PA-C [address] [id number] Schedule an appointment as soon as possible for a visit in 1 week(s) See progress note for physical exam Intake/Output Summary (Last 24 hours) at 12/28/2019 1206 Last data filed at 12/28/2019 0404 Gross per 24 hour Intake 500 ml Output 25 ml Net 475 ml IMAGING [briefly note any results pertinent to today's evaluation]: Reviewed DAILY CHECKLIST: *Need for Restraints: na *Need for Urinary Catheter: na *Need for Central Access Devices: na *VTE Prophylaxis (Body mass index is 38.74 kg/m ., Estimated Creatinine Clearance: 109.7 mL/min (byC-G formula based on SCr of 0.67 mg/dL).): Na Associated attestation - Albert Mcclelland II, MD - 12/28/2019 8:41 PM EST Name: Loc Uriostegui Admit date and time: 12/23/2019 7:25 PM Med rec: [id number] Date of service: 12/28/19 Please link this note as an addendum to the Resident Physician/Advanced Practice Provider note withthe day of service listed above. The patient was seen and examined by me, the attending trauma surgeon, on multidisciplinary rounds on the date of service listed above. I have reviewed the Resident Physician/Advanced Practice Provider note and have reviewed and verified the documented history, chief complaint, review of systems, physical exam, relevant labs, studies, product/industry consultant notes, and plan ofcare, with the following barney points, additions and/or corrections: DISCHARGE DISCUSSION: Discussed with patient and/or family, as appropriate, discharge plans including, but not limited to: Medication changes Activity restrictions Diet On-going treatment plans outside hospital (i.e.; wound care, etc) Expectations / prognosis of condition(s) Follow-up physicians, dates, contact information Issues which may indicate decline in condition(s) and should prompt contact with healthcare team. Directed whom to call for what issues. The patient and/or family were fully informed of the above findings and plan of care. They had the opportunity to ask questions and raise any issues of concern, all of which were answered and dealt with by me to their stated satisfaction. This was a 31 minute patient encounter with greater than 50% of the time devoted to counseling of the patient and/or family and coordination of care. This time does NOT include that spent performing or supervising any procedures. Albert Mcclelland II, MD, MS, FACS Trauma, Critical Care, & Acute Care Surgery documented in this encounter Discharge Instructions * Instructions* Colt Saavedra CNP - 12/28/2019 INJURIES: 1. Right 2nd-9th rib fractures with small hemopneumothorax and subcutaneous emphysema 2. Right frontal scalp hematoma 3. Scattered abrasions 4. Left subconjunctival hemorrhage 5. Left eyebrow laceration 6. Right scalp laceration SURGERIES/PROCEDURES: Date Operation/Procedure Provider Name 12/24/2019 Left eyebrow laceration ELISEO Palomino 12/24/2019 Left eyebrow laceration repair; laceration repair and hematoma evacuation scalp Abouhassan 12/27/2019 Right chest tube, [address] Trauma INCIDENTAL FINDINGS: 1. Chronic sacroiliitis 2. Minimal degenerative changes of the right knee 3. Small air-fluid levels noted within the right maxillary sinus, with nodular mucosal thickening During your hospitalization it was noted you have the incidental finding(s) listed above. An incidental finding is a disease or condition, found during your hospitalization, that is unrelated to yourpresent injury or illness. You will need to follow up with your family / primary care provider for monitoring and further testing. TRAUMA CARE QUESTIONS / FOLLOW UP CARE A Trauma follow-up appointment should be scheduled for you before you are discharged from the hospital. If not, please contact the office at your earliest convenience to schedule your follow up appointment. Bring your medication list and/or pill bottles with you to your first visit. Telehealth Appointments: In an effort to provide alternate follow up services to all trauma patients, the trauma clinic has made Telehealth available. This is a telephone visit where the patient can speak with a provider over the phone instead of an in-person visit. If appropriate, our office may reach out to you prior to your scheduled appointment to discuss changing to a Telehealth visit. Not all patients are appropriate for telehealth, based on your injuries and follow-up needs. If you have liudmila/stitches, wounds or drains you may be asked to come in for an in- person visit. Outpatient Trauma and Acute Care Surgery Office: [address] [facility] [address]st [address], [address] [place] [address] Hours: Saturday-Saturday, 8am to 4pm. If you need to speak with the trauma/surgery team after hours, please call and ask to speak with the Trauma Advanced Practice Provider consulting sme. Parking: You may park in the [facility] [address], which is attached to the office building. Take the elevators to the 1st floor. The office is in [address]. You may also enter from the [facility] entrance. Walk through both sets of glass doors; the traumaoffice is on the right, [address], under the stairs. Use this entrance if you are arriving by ambulance or wheelchair van. Garage parking is free with a voucher, which you will receive at your appointment. PRIMARY CARE PHYSICIAN FOLLOW UP Call and schedule a post Trauma follow up appointment with your primary care provider. If you need assistance with obtaining a primary care physician please call: [phone] MANAGING YOUR PAIN AT HOME Pain is your body's way of warning you that something is wrong. Pain feels different for everybody.Only you can describe your pain. A provider can suggest or prescribe many types of medicines for pain. These range from nonprescription medicines like acetaminophen (Tylenol) to powerful medicines called opiates. Opiates work well to relieve pain, but they also can cause problems, especially if they are taken too often or in too large a dose. They can interact with other medicines, or they may make it hard for you to do your job or to think clearly. They can even cause . For these reasons, providers are very careful about how they prescribe opiates. It has been carefully considered what pain medicine is right for you. You may not have received opiate pain medicine if there are concerns about drug interactions or your safety. It is best to have one prescriber (doctor/provider) or clinic treat your pain. This way you will get the pain medicine that will help you the most, and monitoring for any problems that the medicine might cause. Follow-up care is a barney part of your treatment and safety. Be sure to make and go to all appointments, and call the number provided if you are having problems. It's also a good idea to know your testresults and keep a list of your medicines. How can you care for yourself at home? Try other ways to reduce pain: ? Relax, and reduce stress. Relaxation techniques such as deep breathing or meditation can help. ? Keep moving. Gentle, daily exercise can help reduce pain over the long run. Try low- or no-impactexercises such as walking, swimming, and stationary biking. Do stretches to stay flexible. ? Try heat, cold packs, and massage. ? Get enough sleep. Pain can make you tired and drain your energy. Talk with your doctor if you have trouble sleeping because of pain. ? Think positive. Your thoughts can affect your pain level. Do things that you enjoy to distract yourself when you have pain instead of focusing on the pain. See a movie, read a book, listen to music, or spend time with a friend. Prescription Pain Medications: ? The prescription provided should be enough to get you through until your follow up appointment with the Outpatient Trauma office or specialty service. ? DO NOT take more than prescribed. ? Refills on opiate pain medications can only be filled in person. ? Over time, you should be able to take less medications as your injuries heal. ? Take an over the counter stool softener daily with the pain medicine to prevent the development of constipation. ? Also drink plenty of water and eat foods high in fiber. If you are not taking a prescription pain medicine, take an hzzo-smu-fnitvpl medicine as directed such as Tylenol (Acetaminophen) or Motrin (Ibuprofen). When should you call for help? Call your doctor now or seek immediate medical care if: ? You have a new kind of pain. ? You have new symptoms, such as a fever or rash, along with the pain. ? You think you might be using too much pain medicine. ? You need help to use less or stop taking pain medicine. ? Your pain gets worse. ? You would like a referral to a doctor or clinic that specializes in pain management. RETURN TO WORK You may return to work as follows: [ ] Immediately upon hospital discharge- No work restrictions [ ] When no longer requiring opiate pain medications [x] We will discuss returning to work at your Outpatient Trauma office appointment [ ] When you follow up with your specialist, they will tell you when you may return to work CARSON-MAHONEY DRAIN (or REYNA drain) When you return home, do the following to help ensure a smooth recovery: -Empty drain at least twice a day or when full, keep a record of the amount of the drainage emptiedand take the record to your follow up appointment. -Avoid bumping the drain -Sleep on the opposite side of the drain. This will help you avoid blocking the tubing or pulling it out of the suction bulb. -You can shower with your drain, do not submerge in a tub or soak in water. Call your doctor if any of the following occurs: -Drainage is greenish in color or has a bad smell -Significant bleeding from the drain -Pain at the incision -Fever or chills -End of the tube comes out of the incision -Removal of a drain depends on how fast you heal from surgery or injury. Your doctor may remove thedrain when there is less than 1-2 tablespoons (15-30 milliliters) of drainage/fluid per day. If youhave more than one drain, they may not necessarily be removed at the same time. LACERATIONS You have sustained a cut to your skin. It has been repaired with sutures ( stitches ), liudmila, or glue. Wound Care: o Change the dressing twice daily if recommended. Most lacerations may be left open to air (no dressing needed) once it is repaired. o Apply bacitracin ointment over incision twice daily. o You may shower. Do NOT take a tub bath, swim or get in a hot tub. o Before and after caring for your wound wash your hands with soap and warm water. o Gently clean the wound 1-2 times a day with cool water. Use mild soap to clean around the wound but try not to get any soap on the wound edges. o Do NOT use alcohol or hydrogen peroxide to clean your wound o Do NOT put any ointments, lotions or powder on the wound unless you are told to do so by your doctor? Monitor the site for infection and call the Outpatient Trauma office if you develop: o You have signs of infection, such as increased pain, swelling, warmth, or redness around the wound. o Red streaks leading from the wound. o Pus draining from the wound. o A fever greater than 101 degrees. Your sutures or liudmila will be removed at your Outpatient Trauma office appointment. CONCUSSION Your trauma or accident has caused a sudden shock or jarring to your brain, with or without a loss of consciousness ( passing out ). You may be having one or more of these post concussive symptoms (PCS): ? Headache, blurred and/or double vision ? Problems sleeping, fatigue, and/or irritability ? Dizziness and/or feeling nauseous ? Poor coordination or loss of balance ? Memory, concentration, and/or organization problems We recommend you have a responsible person with you at all times for the first 2-3 days after discharge from the hospital, following a concussion. Most people recover fully from a concussion but occasionally PCS can last up to 3 months or longer. Follow up with your family doctor, trauma office and/or speech therapist while these symptoms continue. Call 911 if these symptoms become life threatenin g. RIB FRACTURES You have rib fractures or broken ribs. It will take about 6 to 8 weeks for your ribs to heal completely. To Help The Ribs Heal: ? Rest is the most important part of healing. ? Avoid strenuous activities ? Light activity such as walking will help the ribs heal and reduce your risk of complications. ? When the pain decreases, begin normal slow movements of your body. ? Avoid bumping the rib area as you move. To Decrease Discomfort / Pain ? Support or brace your ribs with your hands or a pillow when taking deep breaths, coughing or withactivity. ? Take your pain medications as prescribed. To Prevent Pneumonia Continue deep breathing exercises at least 10 times every hour while you are awake. Use the breathing tool, incentive spirometer , which you received while in the hospital. This will help the lung continue to heal and prevent infection. How to use an Incentive Spirometer: ? Sit up and hold the incentive spirometer. ? Place the mouthpiece in your mouth. Make sure you make a good seal with your lips. ? Breathe out (exhale) normally. ? Breathe in (inhale) SLOWLY. ? A piece of the incentive spirometer will rise as you inhale. ? Try to get this piece to rise as high as you can. ? Your provider will place a marker next to your goal prior to discharge. This tells you how big ofa breath you should take. ? A smaller piece in the incentive spirometer looks like a ball or disc. ? Your goal should be to make this ball stays in the middle of the chamber. ? If you breathe too fast, the ball will shoot to the top. ? If you breathe too slowly, the ball will stay at the bottom. ? Hold your breath for 3 to 5 seconds, before you exhale. ? Take 10 to 15 breaths using the spirometer every hour, while you are awake. Call the Outpatient Trauma office if you develop: ? A fever greater than 101 and/or cough Call 911 or go to the nearest emergency department if you develop chest pain or have difficulty breathing. CHEST TUBE: Home Care Instructions, remove dressing 12/26, okay to cover with band aid or coverlet, okay to shower. You had an injury to your chest which needed the placement of a tube to heal. The chest tube was used to drain fluid and/or air out of the chest cavity to keep the lung expanded. Continue deep breathing exercises at least 10 times every hour while you are awake. Use the breathing tool, incentive spirometer , which you received while in the hospital. This will help the lung continue to heal and prevent infection. How to use an Incentive Spirometer: ? Sit up and hold the incentive spirometer. ? Place the mouthpiece in your mouth. Make sure you make a good seal with your lips. ? Breathe out (exhale) normally. ? Breathe in (inhale) SLOWLY. ? A piece of the incentive spirometer will rise as you inhale. ? Try to get this piece to rise as high as you can. ? Your provider will place a marker next to your goal prior to discharge. This tells you how big ofa breath you should take. ? A smaller piece in the incentive spirometer looks like a ball or disc. ? Your goal should be to make this ball stays in the middle of the chamber. ? If you breathe too fast, the ball will shoot to the top. ? If you breathe too slowly, the ball will stay at the bottom. ? Hold your breath for 3 to 5 seconds, before you exhale. ? Take 10 t0 15 breaths using the spirometer every hour, while you are awake. Chest tube site care instructions (where the chest tube was placed): ? Keep the dressing in place for 48 hours after the tube(s) has been removed. ? After that initial 48 hours, take the dressing off and check the site for signs of infection (redness, swelling, warmth, bad odor, drainage or red streaks on the skin) ? Each day, gently clean the area with a mild soap and plain water. Pat dry. You may cover the sitewith a Band-Aid or with dry gauze. ? Do not remove any scab that may form over the site. It will fall off. ? If you have stitches at the site, call to schedule a follow up visit to have the stitches removed. Call the Outpatient Trauma office at if you have: ? Signs of infection: redness, swelling, warmth, bad odor, drainage or red streaks on the skin nearthe site. ? A fever over 101 degrees. documented in this encounter History of Present Illness * Colt Saavedra, ROMEO - 12/28/2019 10:23 AM EST MONET PROGRESS NOTE [place] ISM [place]JURY: [facility] [place] (yes/no?): Yes Anticoagulant / Anti-platelet Rx? Denies Reason/Dx: n/a INJURIES: 1. Right 2nd-9th rib fractures with small hemopneumothorax and subcutaneous emphysema 2. Right frontal scalp hematoma 3. Scattered abrasions 4. Left subconjunctival hemorrhage 5. Left eyebrow laceration 6. Right scalp laceration SURGERIES/PROCEDURES: Date Operation/Procedure Provider Name 12/24/2019 Left eyebrow laceration ELISEO Palomino 12/24/2019 Left eyebrow laceration repair; laceration repair and hematoma evacuation scalp Abouhassan 12/27/2019 Right chest tube, [address] [facility] Trauma ACTIVE MEDICAL PROBLEMS: 1. Elevated lactic acid 2. Polycythemia vera 3. Hypokalemia 4. Tobacco abuse INCIDENTAL FINDINGS: 1. Chronic sacroiliitis 2. Minimal degenerative changes of the right knee 3. Small air-fluid levels noted within the right maxillary sinus, with nodular mucosal thickening DISCHARGE PLANNIN. Pending medical clearance 2. Trauma 3. Plastics TODAY' S ASSESSMENT AND PLAN OF CARE: 1. Right rib fx with hemopneumothorax: CT placed 12/24, CXR looked like it was in the chest 12/25, CXR 12/26 with rotation shows tube is not within the pleural space, reviewed imaging with Dr. Sandra 12/26, tube removed 12/26. CXR this am with stable small R apical ptx and she remains on RA. Monitor. 2. Acute pain due to trauma: Multimodal regimen in place. Continue current regimen. Weaned today, added toradol, discussed with patient and she is agreeable to plan. 3. Left eyebrow laceration: S/p repair, remove in 5-7 days. 4. Concussion: Denies PCS, +LOC and head trauma. Cog eval obtained with no further needs. 5. Right scalp laceration: PRS evaluated, POD#4. REYNA with blood tinged output, PRS will leave drain in until follow up outpatient, discussed with PRS 12/27 6. Leukocytosis: Likely reactive. Afebrile. No overt signs of infection. No need for re-check. 7. Tobacco abuse: Patient admits to smoking 1ppd. Declines need for patch at this time. 8. Scattered abrasions: Local wound care. 9. Dispo: home when pain controlled and chest tube is out and on room air. DISPOSITION - TICU CHIEF COMPLAINT/ HPI / PFSHx / EVENTS OVER LAST 24HRS: Chest tube removed 12/26, pain controlled, weaning pain medications. Transfer to floor, home as early as tomorrow. REVIEW OF SYSTEMS: Denies CP/BAÑUELOS/paresthesias/SOB/abdominal pain. Other than the above items the remainder of the complete ROS is otherwise unchanged from admission. PHYSICAL EXAM: Temp: [97.3 F (36.3 C)-98.9 F (37.2 C)] 98.1 F (36.7 C) Heart Rate: [76-113] 80 Resp: [10-29] 21 BP: (94-127)/(49-79) 115/78 GENERAL: Appears age appropriate. No acute distress. NEUROLOGICAL: Alert and oriented X 3. GCS 15. Follows commands with extremities x4, equal strength.Pupils equal, round, reactive to light. EOMI. No focal neurologic deficits noted. HEAD/FACE/EYES: Normocephalic, right scalp dressing in place, REYNA with blood tinged output. Left eyelid laceration WAP with sutures. L periorbital edema and ecchymosis. Subconjunctival hemorrhage. CARDIOVASCULAR: Regular rate and rhythm. No clicks, rubs, murmurs or gallops noted. No peripheral edema noted. personnel monitor displays sinus rhythm. 2+ pulses radial/DP/PT bilaterally. RESPIRATORY:stable on 2L NC. Right CT in place, +airleak. Lungs, clear to auscultation bilaterally.No rhonchi, wheezes or crackles. Respiratory effort unlabored without use of accessory muscles. ABDOMINAL: Rounded, soft, non-tender, non-distended, normal bowel sounds. No guarding or peritonealsigns. GENITOURINARY: Voiding without difficulty. No dysuria or retention. No gross hematuria. MUSCULOSKELETAL: Extremities atraumatic without gross deformity x4. ROM appropriate for age. No clubbing, cyanosis or joint edema. SKIN: Skin warm and dry. Normal turgor. No rashes or lesions. Intake/Output Summary (Last 24 hours) at 12/28/2019 1023 Last data filed at 12/28/2019 0404 Gross per 24 hour Intake 500 ml Output 25 ml Net 475 ml IMAGING [briefly note any results pertinent to today's evaluation]: Reviewed DAILY CHECKLIST: Patient seen in room 743B *Need for Restraints: no *Need for Urinary Catheter: no *Need for Central Access Devices: no *VTE Prophylaxis (Body mass index is 38.74 kg/m ., Estimated Creatinine Clearance: 109.7 mL/min (byC-G formula based on SCr of 0.67 mg/dL).): Lovenox * Colt Saavedra CNP - 12/27/2019 10:41 AM EST MONET PROGRESS NOTE MECHAN ISM OF INJURY: [facility] [place] (yes/no?): Yes Anticoagulant / Anti-platelet Rx? Denies Reason/Dx: n/a INJURIES: 1. Right 2nd-9th rib fractures with small hemopneumothorax and subcutaneous emphysema 2. Right frontal scalp hematoma 3. Scattered abrasions 4. Left subconjunctival hemorrhage 5. Left eyebrow laceration 6. Right scalp laceration SURGERIES/PROCEDURES: Date Operation/Procedure Provider Name 12/24/2019 Left eyebrow laceration ELISEO Palomino 12/24/2019 Left eyebrow laceration repair; laceration repair and hematoma evacuation scalp Abouhassan 12/27/2019 Right chest tube, [address] [facility] Trauma ACTIVE MEDICAL PROBLEMS: 1. Elevated lactic acid 2. Polycythemia vera 3. Hypokalemia 4. Tobacco abuse INCIDENTAL FINDINGS: 1. Chronic sacroiliitis 2. Minimal degenerative changes of the right knee 3. Small air-fluid levels noted within the right maxillary sinus, with nodular mucosal thickening DISCHARGE PLANNIN. Pending medical clearance 2. Trauma 3. Plastics TODAY' S ASSESSMENT AND PLAN OF CARE: 1. Right rib fx with hemopneumothorax: CT placed 12/24, CXR looked like it was in the chest 12/25, CXR this morning with rotation shows tube is not within the pleural space, reviewed imaging with Dr. Sandra, has small R apical ptx, will remove CT today and repeat XR in morning. On room air, IS at 1500 this morning. 2. Acute pain due to trauma: Multimodal regimen in place. Continue current regimen. Wean 12/27. 3. Left eyebrow laceration: S/p repair, remove in 5-7 days. 4. Concussion: Denies PCS, +LOC and head trauma. Cog eval obtained with no further needs. 5. Right scalp laceration: PRS evaluated, POD#3. REYNA with blood tinged output, mngt per PRS. 6. Leukocytosis: Likely reactive. Afebrile. No overt signs of infection. No need for re-check. 7. Tobacco abuse: Patient admits to smoking 1ppd. Declines need for patch at this time. 8. Scattered abrasions: Local wound care. 9. Dispo: home when pain controlled and chest tube is out and on room air. DISPOSITION - TICU CHIEF COMPLAINT/ HPI / PFSHx / EVENTS OVER LAST 24HRS: No new issues overnight, chest tube determined to be extrapleural and within chest wall, will remove. REVIEW OF SYSTEMS: Denies CP/BAÑUELOS/paresthesias/SOB/abdominal pain. Other than the above items the remainder of the complete ROS is otherwise unchanged from admission. PHYSICAL EXAM: Temp: [97.2 F (36.2 C)-98.6 F (37 C)] 98.1 F (36.7 C) Heart Rate: [78-99] 79 Resp: [11-21] 17 BP: (105-117)/(53-70) 117/53 GENERAL: Appears age appropriate. No acute distress. NEUROLOGICAL: Alert and oriented X 3. GCS 15. Follows commands with extremities x4, equal strength.Pupils equal, round, reactive to light.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 time, but unable secondary to: OT Visit Variance: Patient Unavailable: Pt in OR at this time with plastic sx. Will follow up as appropriate. SPEECH THERAPY VISIT VARIANCE NOTE Attempted to see patient at this time, but unable secondary to: Visit Variance: Patient Unavailable (Pt in OR). Will follow up as appropriate. Pre-Operative Risk Stratification & Checklist This patient requires operative intervention that is considered time sensitive (greater than 24 hours but timely intervention will likely improve operative success). This has been determined by the operating service and discussed with the patient and/or their family. After consideration of the patient's injuries as well as concurrent medical conditions, the following tests and/or consultants have been ordered: (include date & time product/industry consultant was notified, or test was ordered) 1. No further workup indicated ----- COVID-19 Testing The patient has been tested for COVID-19. This was performed on 12/23/2019. SARS-CoV-2 was not detected at that time. Cardiovascular Assessment & Management The patient's MACE/RCRI (revised cardiac risk index) score has been calculated. The RCRI is < 1%, and the patient may proceed to surgery. The patient is 34 y.o. and a 12 lead EKG has not been completed. (Obtain ECG if > 50 yo +/or high risk for cardiac disease (HTN, CVD, DM, renal disease) +/or high risk for major blood loss (>1.5 L); history of afib/aflutter/SVT; complaints of chest pain or syncope) On physical exam, the patient does not have a new clearly audible murmur. The patient has no history of CHF or vavlular disease The patient has the following unstable cardiac conditions: none Cardiology has not been consulted Pulmonary assessment The patient has no severe chronic lung disease and thus pulmonary has not been consulted Anticoagulation & blood product management Patient's home antiplatelet & anticoagulation medications include No use of AC/AP meds per report The most recent labs show: Lab Results Component Value Date WBC 15.79 (H) 12/24/2019 HGB 14.8 12/24/2019 HCT 45.3 12/24/2019 PLT 215 12/24/2019 No results found for: INR A type and screen was sent on 12/23/2019 (T&S valid for 72 hrs) 0 units of PRBC are on-hold for the OR Chemical DVT prophylaxis (Lovenox or SQH) will be given the morning of surgery (hold for spine or eye surgery, as well as craniotomy) Additional Pre-operative Considerations Surgical consent per operating service in the patient's folder The appropriate stacia-operative antibiotics per operating service been ordered. If the patient is female and under 50 years old, then a urine test was completed on 12/23/2019 and it was negative (Urine & serum valid for 48 hrs) The patient does not have a history of Diabetes. The most recent blood glucose measurements include Lab Results Component Value Date GLUCOSE 103 (H) 12/23/2019 GLUCOSE 109 (H) 12/23/2019 Home medications include N/A Renal disease The patient does not have evidence of ESRD or new KATHY. No further work-up or consultation is necessary Liver Disease The patient has no known history of liver disease Hematology The patient does not have a hereditary bleeding disorder, nor is a Baptism. No further work-up or consultation is necessary MONET PROGRESS NOTE MECHAN ISM OF INJURY: [facility] (yes/no?): Yes Anticoagulant / Anti-platelet Rx? Denies Reason/Dx: n/a INJURIES: 1. Right 2nd-9th rib fractures with small hemopneumothorax and subcutaneous emphysema 2. Right frontal scalp hematoma 3. Scattered abrasions 4. Left subconjunctival hemorrhage 5. Left eyebrow laceration 6. Right scalp laceration SURGERIES/PROCEDURES: Date Operation/Procedure Provider Name 12/24/2019 Left eyebrow laceration ELISEO Palomino ACTIVE MEDICAL PROBLEMS: 1. Elevated lactic acid 2. Polycythemia vera 3. Hypokalemia 4. Tobacco abuse INCIDENTAL FINDINGS: 1. Chronic sacroiliitis 2. Minimal degenerative changes of the right knee 3. Small air-fluid levels noted within the right maxillary sinus, with nodular mucosal thickening DISCHARGE PLANNIN. Pending medical clearance 2. Trauma 3. Plastics TODAY' S ASSESSMENT AND PLAN OF CARE: 1. Right rib fx with hemopneumothorax: Stable on RA. Repeat CXR in AM without PTX present. Multimodal analgesia. Pulm toilet/IS (pulling 1250 on IS). Lovenox. 2. Left eyebrow laceration: S/p repair. Local wound care. Sutures to be removed in 7-10 days. 3. Concussion: Denies PCS, +LOC and head trauma. Cog eval pending. 4. Right scalp laceration: PRS consulted for further evaluation. plan to address in OR today. 5. Hypokalemia: Resolved. 6. Leukocytosis: Likely reactive. Afebrile. No overt signs of infection. 7. Elevated lactic acid: resolved with MIVF. D/c MIVF. 2/2 trauma, EtOH. 8. Polycythemia vera: 2/2 chronic smoking. Monitor. 9. Tobacco abuse: Patient admits to smoking 1ppd. Declines need for patch at this time. 10. Scattered abrasions: Local wound care. 11. Sinus tachycardia: 2/2 pain. BP stable. MIVF given overnight. Monitor. DISPOSITION - TICU CHIEF COMPLAINT/ HPI / PFSHx / EVENTS OVER LAST 24HRS: Patient admitted overnight. No signs of distress on exam. Awaiting cog eval and NPO for OR with PRS with scalp lac repair. REVIEW OF SYSTEMS: Denies CP/BAÑUELOS/paresthesias/SOB/abdominal pain. Other than the above items the remainder of the complete ROS is otherwise unchanged from admission. PHYSICAL EXAM: Temp: [98 F (36.7 C)-98.2 F (36.8 C)] 98 F (36.7 C) Heart Rate: [102-119] 102 Resp: [18-22] 21 BP: (109-135)/(82-114) 135/86 GENERAL: Appears age appropriate. No acute distress. NEUROLOGICAL: Alert and oriented X 3. Cranial nerves II-XII intact grossly. GCS 15. Follows commands with extremities x4, equal strength. Pupils equal, round, reactive to light. EOMI. No focal neurologic deficits noted. HEAD/FACE/EYES: Normocephalic, right scalp wound, hemostatic, gouge in top of scalp. Left eyelid laceration WAP with sutures. L periorbital edema and ecchymosis. Subconjunctival hemorrhage. EARS/NOSE/MOUTH/THROAT: Ears: External ear normal. Hearing within normal limits for patient. No drainage. Nose: nares normal, septum midline, no drainage or nasal tenderness. Neck: supple, symmetrical, trachea midline. CARDIOVASCULAR: Regular rate and rhythm. No clicks, rubs, murmurs or gallops noted. No peripheral edema noted. personnel monitor displays sinus rhythm. 2+ pulses radial/DP/PT bilaterally. RESPIRATORY:stable on RA. Lungs, clear to auscultation bilaterally. No rhonchi, wheezes or crackles. Respiratory effort unlabored without use of accessory muscles. ABDOMINAL: Rounded, soft, non-tender, non-distended, normal bowel sounds. No guarding or peritoneal signs. GENITOURINARY: Voiding without difficulty. No dysuria or retention. No gross hematuria. MUSCULOSKELETAL: Extremities atraumatic without gross deformity x4. ROM appropriate for age. No clubbing, cyanosis or joint edema. SKIN: Skin warm and dry. Normal turgor. No rashes or lesions. No intake or output data in the 24 hours ending 12/24/19 1257 IMAGING [briefly note any results pertinent to today's evaluation]: Admission images reviewed DAILY CHECKLIST: Patient seen in room 743B *Need for Restraints: no *Need for Urinary Catheter: no *Need for Central Access Devices: no *VTE Prophylaxis (Body mass index is 38.74 kg/m ., Estimated Creatinine Clearance: 109.7 mL/min (by C-G formula based on SCr of 0.67 mg/dL).): jackie Head to toe skin assessment completed by this RN and Merissa Wise RN. Wounds added to flowsheet under wound documentation. documented in this encounter Addendum created 04/14/20 1039 by Karla London CRNA Cosign clinical note documented in this encounter Procedure Summary Anesthesia Record (unrecogni zed section and content) Events Date Time Event Comment 12/24/2019 1401 1502 AN Equip Check 1503 An Start 1503 Patient Verification 1503 An Start Data 1513 An Induction 1517 An Intubation 1518 Anesthesia Ready 1620 [facility] OR 10 1626 An Extubation 1628 an stop data 1632 Handoff I completed my SBAR handoff to the receiving nurse in the PACU/unit. 1633 An Stop [employer] Name Total Agents No agents on file. Blood No blood administrations on file. Lines, Drains, and Airways Type Details Placement Removal Wound 12/24/19; 0253; 1; Y ; Acute; Laceration; Eye; Left, Upper 12/24/19 0253 by Ivy Marcano RN Wound 12/24/19; 0253; 2; Y ; Acute; Laceration; Head-parietal; Right 12/24/19 0253 by Ivy Marcano RN Wound 12/24/19; 0253; 3; Y ; Acute; Abrasion(s); Elbow; Left 12/24/19 0253 by Ivy Marcano RN Wound 12/24/19; 0253; 4; Y ; Acute; Abrasion(s); Arm, Back, Buttock, Leg; Right 12/24/19 025 by Ivy Marcano RN Closed/Suction Drain 12/24/19; 1554; Rig ht; Other (Comment) (FOREHEAD); 10 Fr.; Flat; Bulb 12/24/19 1554 by Hien Corrales RN Peripheral IV Placement Date: 12/23/19; Existing LDA Placed by: EMS; Orientation: Right; Location: Antecubital; Site Prep: Alcohol; Removal Date: 12/28/19; Removal Time: 1334 12/23/19 0000 by Angie Harris RN 12/28/19 1334 by Nighat Bettencourt RN ETT Placement Date: 12/24/19; Placement Time: 154 (created via procedure documentation); Mask Ventilation: Ventilated by mask; Type: Cuffed, Oral; Tube Size: 7.5 mm; Grade View: 1; Insertion Attempts: 1; Removal Date: 12/24/19; Removal Time: 16212/24/19 1540 by Mendoza Kenny MD 12/24/19 1626 by Karla London CRNA Anesthesia Postprocedure Evaluation - Karla London CRNA - 12/24/2019 4:32 PM ESTAnesthesia Procedure Notes - Ariana Cardozo - 12/24/2019 3:39 PM EST OR Notes (unrecognized secti on and content) Anesthesia Post Evaluation * * Refer to nursing documentation for PACU vitals * * Patient participation: patient participated Mental status: awake Pain management: adequate Anesthetic complications: no Nausea / vomiting: no Cardiovascular status: hemodynamically stable Respiratory / airway status: airway patent, spontaneous ventilation and nasal cannula Postoperative hydration: acceptable Comment: Pt awake and talking, denies pain, report given to Kyleigh GARCIA and all questions answered. HR: 120 RR: 16 BP: 121/81 SPO2: 93 Temp: 98.9 Associated Order(s): ETT Airway ETT Airway Mask ventilation: ventilated by mask Technique: direct laryngoscopy and intubating stylet Type: cuffed oral Tube size: 7.5 mm Final laryngoscope: Mac 3 Location: oral Final grade: 1 Insertion attempts: 1 Placement verification: end tidal CO2 and symmetrical chest wall movement Secured at: 21 cm (measured from the teeth) Secured by: tape Bite block: none Lip/tooth/tongue trauma: no *See MAR for medication administration ANESTHESIA PREPROCEDURE EVALUATION Anesthesia Plan ASA: 3 Type: general Airway: endotracheal tube and supraglottic airway Induction: intravenous Anesthetic plan and risks as outlined in the consent discussed with: patient Use of blood products discussed with: patient Plan discussed with: Anesthesiologist Physical Exam Airway Mallampati: II TM Distance: <3 FB Neck ROM: full Mouth opening: >[address]: no Neurological Mental Status: alert Review of Systems / Medical History - Reviewed: ECG, patient summary, anesthesia history, nursing notes, medical history, H&P and labs / results - No history of anesthetic complications Pulmonary Comment: 12/24/19 0039 XR Chest 1 View (Final result) View Image Impression No evidence of a pneumothorax. The tiny right pneumothorax noted by CT is beneath the resolution of the portable chest x-ray. Endocrine / Musculoskeletal Comment: BMI 39 1. Right rib fx with hemopneumothorax: Stable on RA. Repeat CXR in AM. Multimodal analgesia. Pulm toilet/IS. Lovenox. 2. Left eyebrow laceration: S/p repair. Local wound care. Sutures to be removed in 7-10 days. 3. Right scalp laceration: PRS consulted for further evaluation. Appreciate recs. 4. Hypokalemia: Replete with oral potassium and recheck in AM. 5. Elevated lactic acid: 2/2 trauma, EtOH. No s/sx infection. Gentle hydration, recheck in AM. 6. Polycythemia vera: 2/2 chronic smoking. Positive: obesity fracture Other Positive: a smoker documented in this encounter Source Comments (unrecognize d section and content) In the event this informatio n is protected by the Federal Confidentiality of Alcohol and Drug Abuse Patient Records regulations: The Federal rules restrict any use of the information to criminally investigate or prosecute any alcohol or drug abuse patient.[facility] the event this information is protected by the Federal Confidentiality of Alcohol and Drug Abuse Patient Records regulations: The Federal rules restrict any use of the information to criminally investigate or prosecute any alcohol or drug abuse patient.[facility] Center[facility] the event this information is protected by the Federal Confidentiality of Alcohol and Drug Abuse Patient Records regulations: The Federal rules restrict any use of the information to criminally investigate or prosecute any alcohol or drug abuse patient.[facility] the event this information is protected by the Federal Confidentiality of Alcohol and Drug Abuse Patient Records regulations: The Federal rules restrict any use of the information to criminally investigate or prosecute any alcohol or drug abuse patient.[facility] Center[facility] the event this information is protected by the Federal Confidentiality of Alcohol and Drug Abuse Patient Records regulations: The Federal rules restrict any use of the information to criminally investigate or prosecute any alcohol or drug abuse patient.[facility] CenterIn the event this information is protected by the Federal Confidentiality of Alcohol and Drug Abuse Patient Records regulations: The Federal rules restrict any use of the information to criminally investigate or prosecute any alcohol or drug abuse patient.[facility] Center[facility] the event this information is protected by the Federal Confidentiality of Alcohol and Drug Abuse Patient Records regulations: The Federal rules restrict any use of the information to criminally investigate or prosecute any alcohol or drug abuse patient.[facility] Care Teams (unrecognized sec tion and content) Office Services Assistant Relationship Specialty Start Date End Date Connie Morse MD [address] [place] [address] PCP - General Internal Medicine 08/12/20 Office Services Assistant Relationship Specialty Start Date End Date Connie Morse MD [address] [place] [address] PCP - General Internal Medicine 08/12/20 Office Services Assistant Relationship Specialty Start Date End Date Connie Morse MD [address] [facility] [place] [address] PCP - General Internal Medicine 08/12/20 Office Services Assistant Relationship Specialty Start Date End Date Connie Morse MD [address] [place] [address] PCP - General Internal Medicine 08/12/20 Office Services Assistant Relationship Specialty Start Date End Date Connie Morse MD [address] [place], [place] [address] PCP - General Internal Medicine 08/12/20 Office Services Assistant Relationship Specialty Start Date End Date Connie Morse MD [address] [place] [address] PCP - General Internal Medicine 08/12/20 FOR RECORDS PERTAINING TO PATIENTS WHO ARE OR HAVE BEEN ENROLLED IN A CHEMICAL DEPENDENCY/SUBSTANCEABUSE PROGRAM, SOME INFORMATION MAY BE OMITTED. This clinical summary was aggregated from multiple sources. Caution should be exercised in using it in the provision of clinical care. This summary normalizes information from multiple sources, and as a consequence, information in this document may materially change the coding, format and clinical context of patient data. In addition, data may be omitted in some cases. CLINICAL DECISIONS SHOULD BE BASED ON THE PRIMARY CLINICAL RECORDS. [facility] [employer] [facility]. provides no warranty or guarantee of the accuracy or completeness of information in this document."
[2023-02-14 10:00] LABS: Internal QC Validated? YES +Cl - CLEAR BKGD; Pregnancy, Urine Negative Negative; Record Kit Lot#,Urine Preg 667200
== END 2023-02-14 23:59 | disposition home or self-care (01) ==
LOC: PAVLAB 09:27
PROVIDERS: PCP Internal Medicine; Referring Provider Obstetrics & Gynecology; Visit Provider Obstetrics & Gynecology
DX: Z01.818 Encounter for other preprocedural examination (principal)
CPT/HCPCS: 36415; 81025; 85027; 86850; 86900; 86901

== ENCOUNTER 2023-02-19 12:13 | Day surgery (SDC) | payer MEDICAID, SELFPAY ==
[2023-02-19] VITALS (7 sets, daily range): BP systolic 107–125; BP diastolic 63–74; PULSE 70–84; RESP 14–18; TEMP 36.3–36.5; O2SAT 93–99; BMI 40.2
--- NOTE | 2023-02-19 | IMM_PTH ---
PATHOLOGY RESULTS PATIENT: LOC SIMEON LOC: [facility] [place] U#:[id number] AGE/SX: 38/F ROOM: RE02/19/[address]: Dr. Shazia Cosme MD : 1985 BED: DIS: 02/19/2023 SPEC #: [id number] RECD: 02/21/23 14:45 STATUS: MARCIA REQ #: [id number] SATYA: 02/19/23 00:[address]: Shazia Cosme DEPT: IMMUNOHISTOCHEMISTRY RECD BY: Karrie Butterfield ENTERED: 02/21/23 14:47 SP TYPE: IMMUNO OTHR DR: No Primary Care Phys Tissues: UTERINE CERVIX LEEP UTERINE CERVIX LEEP Procedures: p16 (initial) KI-67 (add) PHYSICIAN & INSTITUTION [place] [address] SPECIMEN INFORMATION: Tissue Source: A - Anterior lip, B - Posterior lip Clinical Info: AUTUMN II Specimen Number: [id number] A3 & B1 CPT code: 26550 x2, 49742 x2 METHODOLOGY: Deparaffinized sections of prefer/formalin-fixed tissue or PAP/DQ stained slides are incubated with monoclonal/polyclonal antibodies/oligonucleotide probes. Localization is made via biotin free immunoperoxidase method. Appropriate controls are performed and reacted as expected. Results on target cell population are indicated in the following table: RESULTS: ANTIBODY / CLONE RESULT Block A3 P16 (E6H4) positive, block staining Ki-67 (30-9) positive, low to moderate Block B1 P16 (E6H4) negative Ki-67 (30-9) positive, low These tests were developed and their performance characteristics determined by [facility]. They may not have been cleared or approved by the U.S. Food and Drug Administration. The FDA has determined that such clearance or approval is not necessary. The above immunohistochemical/dualISH markers are ordered and reviewed by the Pathologist. INTERPRETATION: A. Cervix, anterior lip, LEEP conization: Focal moderate squamous dysplasia. B. Cervix, posterior lip, LEEP conization: Negative for dysplasia. SJ:sarah 02/22/2023
--- NOTE | 2023-02-19 12:26 | PCM.HP.BLA ---
History and Physical Date of Admission: 02/19/23 Intake Vital Signs 12/18/2311:11 02/14/2310:06 02/14/2310:12 Height 5 ft 8 in 5 ft 8 in 5 ft 8 in Weight: 268 lb 2 oz BMI 40.7 BP 121/82 H Intake Visit Reasons: LEEP Chief Complaint: preop Clothing Man Required: No Is patient in pain?: No Allergies No Known Allergies Allergy (Verified 02/14/23 10:05) Medications NK 02/14/23 [History Confirmed 02/14/23] Post menopausal: No Patient : No : No PFSH Medical History Alcohol use Anxiety Back pain Fatty liver Former smoker History of Holter monitoring HPV (human papilloma virus) infection Hx of abnormal cervical Papanicolaou smear Injury of head and neck Marijuana use Mother currently breast-feeding Placental abnormality depression Shortness of breath on exertion Substance abuse Superficial varicosities Vaginal delivery Wears glasses Surgical History History of tonsillectomy and adenoidectomy Hx of chest tube placement Hx of plastic surgery Family History Brother Heart murmur Social History adopted: No household members: spouse and children number of children: 2 current occupational status: employed current occupation: [employer] current occupational exposures/hazards: Yes (sanitation chemical once every two weeks) pets and animals: Yes pets and animals: dog(s) history of recent travel: No sexually active: Yes Smoking Status: Former smoker alcohol intake: former details: Quit March substance use type: does not use and former substance user Date of last use: 2011- meth, cocaine, marijuana diet: lactose free well-balanced diet: daily or most days caffeine: No eating out: 1-3 times/week during the past year weight has: remained stable what type of physical activity do you participate in: none roland/mu-ism: Jewish seatbelt use: always do you feel safe at home: Yes additional 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 Female Reproductive History Questions: metorrhagia: No, sexually active: Yes, dyspareunia: No and PCB: No Menopausal Symptoms: No hot flashes, No night sweats, No weight change, No mood changes, No difficulty concentrating, No sleep problems and No change in libido History 3 Elective abortions Hx Para 3 Spontaneous abortions Hx # Term Pregnancies Ectopic pregnancies Hx # Pregnancies Multiple births # of living children 3 Past Pregnancies Del. Date Name GA/Weeks Outcome Route Bth Weight Infant Gen Labor Lgth Anesthesia Del Locatn Provider FOB 10/11/02 Sulaiman 39 live - full term 6#10oz Male [address] [facility] Dr. Mraie Meyers 07/03/11 Lloyd 40 live - full term 7#2oz Male [address] [facility] Esequiel 08/20/22 Darvin 34 live - Male epidural [facility] Shazia Borrego Delivery Date: 10/11/02 Last Updated by: Wendy Owens IOL Delivery Date: 07/03/11 Last Updated by: Wendy Owens IOL ROS Const Constitutional: Reports as per HPI; Denies fatigue, increased appetite, poor appetite, night sweats, weight gain or weight loss Cardio Card: Denies chest pain Resp Resp: Denies cough or dyspnea GI GI: Reports as per HPI; Denies abdominal pain, bloating, constipation, nausea or vomiting : Reports as per HPI and other; Denies difficulty voiding, dysuria, hematuria, hot flashes, nipple discharge, pelvic pain, prolapse symptoms, urinary frequency, urinary incontinence, urinary urgency, vaginal discharge, vaginal dryness, vaginal odor or vaginal pruritus Skin Skin/Breast: Denies changing lesions, breast mass, breast pain, breast skin changes or nipple discharge Psych Psych: Denies anxiety, change in libido, depression or difficulty concentrating Exam Const General: cooperative, healthy appearing, comfortable, no acute distress, well developed and well groomed [facility] Head: normal to inspection and normocephalic Ears: hearing grossly normal bilaterally and external ears normal Nose: external nose normal Face and sinus: normal facial exam Neck Neck: normal visual inspection, full ROM and no lymphadenopathy Thyroid: thyroid normal Chest Chest palpation & inspection: normal inspection of the chest Breast inspection: normal inspection of the breasts and normal inspection of the axillae Breast palpation: normal palpation of the breasts, normal palpation of the axillae and no axillary lymphadenopathy Resp Effort & Inspection: normal respiratory effort GI Inspection: normal to inspection and non-distended Palpation: soft, no hepatosplenomegaly and no guarding General: bladder normal to palpation External Female Exam: normal external appearance, normal appearance of the urethra and no lesions Urethra: normal appearance of the urethra and normal palpation Speculum Exam - Vagina: normal appearance of the vagina and normal vaginal discharge Speculum Exam - Cervix: normal appearance of the cervix, no cervical discharge, no lesions and nontender Bimanual Exam- Vagina & Uterus: normal bimanual exam, uterine size normal, bladder normal to palpation, No tender, uterine mobility normal, consistency normal, non-tender and no cervical motion tenderness Bimanual Exam- Adnexa, other: normal adnexae, no masses and non-tender Skin General: no rashes or lesions noted Neuro General: patient alert, moves all extremities and no focal motor deficits Extrem General: normal to inspection and no pedal edema Psych Appearance: grossly normal Mental Status: mental status grossly normal Affect: normal affect Speech and Movement: speech and movement normal Attitude: cooperative Coding Level of Care Code No Charge Diagnoses IUD contraception Z97.5 AUTUMN II (cervical intraepithelial neoplasia II) N87.1 Assessment and Plan Assessment and Plan (1) IUD contraception: Status: Acute Comment: plan liletta insertion at time of LEEP (2) AUTUMN II (cervical intraepithelial neoplasia II): Status: Acute Comment: plan leep Plan After discussing the patient's diagnosis and treatment plan options, patient wishes to proceed with surgical management. I have discussed with the patient the risks, benefits, and alternatives of the procedure which include but are not limited to risks of anesthesia, bleeding, infection, possible damage to bowel, bladder, or surrounding vasculature which could lead to additional surgery to evaluate any complications. Patient agrees to procedure and wishes to proceed. ACOG/uptodate references given for additional information regarding procedure. UPDATE- I have seen the patient and performed any clinically relevant updates to the history and physical exam. Shazia Cosme MD
[2023-02-19] MEDS: Lactated Ringers 1,000 ML 15 ML IV (12:53)
[2023-02-19 12:55] LABS: Internal QC Validated? YES +Cl - CLEAR BKGD; Pregnancy, Urine Negative Negative; Record Kit Lot#,Urine Preg HCG0000667200
--- NOTE | 2023-02-19 13:00 | PCM.OPRPT ---
Problems Associated Problem List Diagnoses (1) AUTUMN II (cervical intraepithelial neoplasia II): Report of Operation Date of Procedure: 02/19/23 Pre-Operative Diagnosis: see problem list Post-Operative Diagnosis: same Surgery/Procedure Performed:: LEEP procedure Description of Surgical Findings:: grossly nl cervix Surgeon: Shazia Cosme watchmaking teacher: None Type of Anesthesia: General and Local Special Medications: monsels paste Specimen's removed: cervix ecc Drains: none Estimated Blood Loss (mL): 50 Fluids Replaced: crystalloid Description of Procedure: Paracervical block was placed with 1% lidocaine and using a loop electrode the outer part of the cervix was removed including the squamocolumnar junction. Endocervical curettings were taken and the base of the cervix was cauterized around the borders and the base to obtain excellent hemostasis. Monsel's paste was placed and patient was awoken and taken recovery in stable condition. Grafts/Implants Used: none Procedure Start Time: 14:05 Procedure Stop Time: 14:16 Complications none Admit VTE Documentation VTE Present on Admission: No VTE Mechan Device Prophylaxis: SCD's Multi Select Codes Urinary/Genital Urinary/Genital CPT Codes: 79319 LEEP
--- NOTE | 2023-02-19 13:02 | PCM.DC ---
Discharge Instructions Diet Discharge Diet: No restrictions Activity Discharge Activity: Return to Normal Activity and May Not Drive (while taking narcotic pain medications.) May resume sexual activity in: 4 weeks (Nothing in the vagina for 4 weeks.) Dressing / Incision Call your doctor if you observe: Fever of 101 or Higher and Using more than 1 pad per hour Follow Up Care Please Follow Up With: Shazia Cosme MD When: Call [phone] for follow-up appointment. Test Results: Test results from this visit will be discussed in further detail at your follow-up appointment, if applicable. Discharge Plan Admission Attending Provider: Shazia Cosme Primary Care Provider: Care Physician,Yolanda Primary Discharge Orders/Prescriptions Prescriptions: No Action NK Referrals / Follow Up: Renee Morse MD [Med Staff - Doctor Assistant] - Disposition Disposition (needs filled in before D/C Order can be placed): Home, Self Care
[2023-02-19] MEDS: Lidocaine 1% (20 ml mdv) 20 ML Vial (14:05)
--- NOTE | 2023-02-19 14:15 | CONE_PTH ---
PATHOLOGY RESULTS PATIENT: LOC SIMEON LOC: [facility] [place] U#:[id number] AGE/SX: 38/F ROOM: RE02/19/[address]: Dr. Shazia Cosme MD : 1985 BED: DIS: 02/19/2023 SPEC #: [id number] RECD: 02/19/23 16:55 STATUS: MARCIA ALVES #: [id number] SATYA: 02/19/23 14:[address]: Shazia Cosme DEPT: SURGICAL PATHOLOGY RECD BY: Abida Levy ENTERED: 02/20/23 09:00 SP TYPE: Leep Cone BRODERICK DR: Yolanda Primary Care Phys Tissues: UTERINE CERVIX LEEP UTERINE CERVIX LEEP Endocervical Procedures: Surgery Specimen Level IV Surgery Specimen Level V HEADER OPERATION: LEEP cone PRE-OP DIAGNOSIS: AUTUMN II TISSUE SUBMITTED: A - Anterior lip, B - Posterior lip, C - Endocervical curettings MICROSCOPIC DIAGNOSIS A. Cervix, anterior lip, LEEP conization: Focal moderate squamous dysplasia with minimal HPV changes (LGSIL, AUTUMN II). Acute and chronic inflammation. Resection margins are free of dysplastic changes. See comment. B. Cervix, posterior lip, LEEP conization: Negative for dysplasia. Chronic inflammation. See comment. C. Endocervical curettings: Fragments of benign endocervical epithelium, benign endocervical mucosa with chronic inflammation, negative for dysplasia. SJ:sarah 02/21/2023 COMMENT A & B. Immunohistochemistry (RF24-20) for surrogate HPV marker (p16) supports the above diagnosis. Please make reference to previous specimen ([id number]), cervix at 12 o'clock, biopsy wit diagnosis of mild and focal moderate squamous dysplasia. Case has been reviewed in consultation with Dr. Dempsey who concurs with the above diagnosis. IDC:AM MICROSCOPIC DESCRIPTION Slides are reviewed. GROSS DESCRIPTION A - Received in fixative is one container labeled with the patient's name and designated anterior lip. The specimen consists of a piece of hernandez, indurated tissue measuring 2.5 x 1.5 x 0.6 cm. No mucosal lesion is identified. Non-mucosal surface is inked black. The specimen is serially sectioned and submitted entirely in three cassettes. B - Received in fixative is one container labeled with the patient's name and designated posterior lip. The specimen consists of a piece of hernandez, indurated tissue measuring 2.5 x 1.0 x 0.7 cm. No mucosal lesion is identified. Non-mucosal surface is inked black. The specimen is serially sectioned and submitted entirely in three cassettes. C - Received in fixative is one container labeled with the patient's name and designated endocervical curettings. The specimen consists of multiple irregular fragments of hernandez mucoid tissue that in aggregate measure 2.0 x 1.0 x 0.1 cm. The specimen is totally submitted in one cassette. / ANA:sarah 02/20/2023 TC:5 CPT: 73909 x2, 97330
== END 2023-02-19 15:51 | disposition home or self-care (01) ==
LOC: SDC 12:14 → AC 12:16
PROVIDERS: Referring Provider Obstetrics & Gynecology; Visit Provider Obstetrics & Gynecology
PROC: 0UBC7ZZ Excision of Cervix, Via Natural or Artificial Opening (ICD-10-PCS; CPT 57522; principal; 2023-02-19 14:00)
DX: N87.1 Moderate cervical dysplasia (principal); Z30.430 Encounter for insertion of intrauterine contraceptive device; Z87.891 Personal history of nicotine dependence
CPT/HCPCS: 57522; 00940; 81025; 88305; 88307; 88341; 88342; J7120; J2405

== ENCOUNTER 2023-05-07 09:11 | Day surgery (SDC) | payer MEDICAID, SELFPAY ==
[2023-05-06 15:06] LABS: Hematocrit 42.1 % (37-47); Hemoglobin 14.8 g/dL (12.0-15.0); Mean Corp Hgb Conc 35.2 g/dL (32-36); Mean Corpuscular Hgb 32.1 pg (27.0-32.0); Mean Corpuscular Volume 91.3 fL (81-99); Mean Platelet Vol. 9.4 fl (6.2-12.0); Platelet Count 219 K/mm3 (150-450); RBC Distribution Width CV 12.9 % (11.6-14.6); RBC Distribution Width SD 42.1 fl (35.1-43.9); Red Blood Count 4.61 M/mm3 (4.2-5.4); White Blood Count 10.4 K/mm3 (4.4-11.0)
[2023-05-07] VITALS (7 sets, daily range): BP systolic 116–147; BP diastolic 67–86; PULSE 69–105; RESP 12–18; TEMP 36.4–36.9; O2SAT 93–100; BMI 40.4
--- NOTE | 2023-05-07 07:10 | HP.PCM_ITS ---
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 Is patient in pain?: No Allergies No Known Allergies Allergy (Verified 04/29/23 14:29) Medications NK 02/14/23 [History Confirmed 04/29/23] Post menopausal: No Patient : No : Yes ON LICENSE OF [facility] Medical History Alcohol use Anxiety Back pain Fatty liver Former smoker History of Holter monitoring HPV (human papilloma virus) infection Hx of abnormal cervical Papanicolaou smear Injury of head and neck Marijuana use Mother currently breast-feeding Placental abnormality depression Shortness of breath on exertion Substance abuse Superficial varicosities Vaginal delivery Wears glasses Surgical History History of loop electrical excision procedure (LEEP) History of tonsillectomy and adenoidectomy Hx of chest tube placement Hx of plastic surgery Family History Brother Heart murmur Social History adopted: No household members: spouse and children number of children: 2 current occupational status: employed current occupation: [employer] current occupational exposures/hazards: Yes (sanitation chemical once every two weeks) pets and animals: Yes pets and animals: dog(s) history of recent travel: No sexually active: Yes Smoking Status: Former smoker alcohol intake: former details: Quit March substance use type: does not use and former substance user Date of last use: 2011- meth, cocaine, marijuana diet: lactose free well-balanced diet: daily or most days caffeine: No eating out: 1-3 times/week during the past year weight has: remained stable what type of physical activity do you participate in: none roland/adventism: Confucianist seatbelt use: always do you feel safe at home: Yes additional social history: [employer]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 planning lap bs next week History 3 Elective abortions Hx Para 3 Spontaneous abortions Hx # Term Pregnancies Ectopic pregnancies Hx # Pregnancies Multiple births # of living children 3 Past Pregnancies Del. Date Name GA/Weeks Outcome Route Bth Weight Gen Labor Lgth Anesthesia Del Locatn Provider FOB 10/11/02 Sulaiman 39 live - full term 6#10oz Male 1 2 Hrs epidural [facility] Dr. Marie Meyers 07/03/11 Lloyd 40 live - full term 7#2oz Male 1 2 HR epidural [facility] Esequiel 08/20/22 Darvin 34 live - Male epidural [facility] Shazia Randalljaradtamiko Borrego Delivery Date: 10/11/02 Last Updated by: Wendy Owens IOL Delivery Date: 07/03/11 Last Updated by: Wendy Owens IOL ROS Const Constitutional: Denies fatigue, fever(s), headache(s), increased appetite, poor appetite, weight gain or weight loss GI GI: Reports as per HPI; Denies abdominal pain, constipation, nausea or vomiting : Reports as per HPI; Denies difficulty voiding, dysuria, hematuria, pelvic pain, urinary frequency, urinary incontinence, urinary hesitancy, urinary urgency, vaginal discharge, vaginal dryness, vaginal odor, vaginal pruritus or other Exam Const General: cooperative, healthy appearing, comfortable, no acute distress and well developed Orientation: alert HENMT Head: normal to inspection and normocephalic Ears: hearing grossly normal bilaterally and external ears normal Nose: external nose normal and nares normal Face and sinus: normal facial exam Neck Neck: normal visual inspection, no lymphadenopathy and trachea midline Thyroid: thyroid normal Resp Effort & Inspection: normal respiratory effort Musc Other: gross motor intact no deficits, full bilateral strength Skin General: no rashes or lesions noted Neuro Motor: muscle tone normal throughout Coding Level of Care Code No Charge Diagnoses AUTUMN II (cervical intraepithelial neoplasia II) N87.1 Depression F32.A Sterilization Z30.2 Assessment and Plan Assessment and Plan (1) AUTUMN II (cervical intraepithelial neoplasia II): Status: Acute Comment: leep completed- 02/25/23 ATUUMN II removed with clear margins, repeat pap in 1 yr (2) Depression: Status: Acute Comment: no meds counseling encouraged (3) Sterilization: Status: Acute Plan After discussing the patient's diagnosis and treatment plan options, patient wi shes to proceed with surgical management. I have discussed with the patient the risks, benefits, and alternatives of the procedure which include but are not limited to risks of anesthesia, bleeding, infection, possible damage to bowel, bladder, or surrounding vasculature which could lead to additional surgery to evaluate any complications. Patient agrees to procedure and wishes to proceed. ACOG/uptodate references given for additional information regarding procedure.
[2023-05-07 09:38] LABS: Internal QC Validated? YES +Cl - CLEAR BKGD; Pregnancy, Urine Negative Negative
[2023-05-07] MEDS: Lactated Ringers 1,000 ML 15 ML IV (09:46)
--- NOTE | 2023-05-07 10:45 | FALS_PTH ---
PATIENT: LOC SIMEON LOC: [facility] [place] U#:[id number] AGE/SX: 38/F ROOM: RE05/07/[address]: Dr. Shazia Cosme MD : 1985 BED: DIS: 05/07/2023 SPEC #: [id number] RECD: 05/07/23 16:03 STATUS: MARCIA REJavon #: [id number] SATYA: 05/07/23 10:[address]: Shazia Cosme DEPT: SURGICAL PATHOLOGY RECD BY: Abida Lvey ENTERED: 05/08/23 08:44 SP TYPE: FALL TUBES OTHR DR: No Primary Care Phys Tissues: Fallopian tube Procedures: Surgery Specimen Level II HEADER OPERATION: Laparoscopic, Salpingectomy PRE-OP DIAGNOSIS: Sterilization TISSUE SUBMITTED: Bilateral fallopian tubes MICROSCOPIC DIAGNOSIS Right and left fallopian tubes, bilateral salpingectomies: Two complete cross sections of the fallopian tubes. Focal lymphatic dilatation. AM: 05/09/2023 MICROSCOPIC DESCRIPTION Slides are reviewed. GROSS DESCRIPTION Received in fixative is one container labeled with the patient's name and designated bilateral fallopian tubes. The specimen consists of bilateral fallopian tubes including fimbrial ends. Fallopian tube measures 7.0 cm in length and up to 1.0 cm in diameter and 6.0 cm in length and 0.6 cm in diameter. The fallopian tubes are not identified as right or left. Sections reveal unremarkable cut surfaces. Primer Inserting Machine Operator sections are submitted in two cassettes with each cassette containing one fallopian tube. / ANA: 05/08/2023 TC:5 CPT: 06901 x2
[2023-05-07] MEDS: Bupivacaine 0.25% 30 ML Vial (11:39)
--- NOTE | 2023-05-07 12:28 | PCM.OPRPT ---
Problems Associated Problem List Diagnoses (1) Sterilization: Report of Operation Date of Procedure: 05/07/23 Pre-Operative Diagnosis: see problem list Post-Operative Diagnosis: same Surgery/Procedure Performed:: laparoscopic bilateral salpingectomy Description of Surgical Findings:: nl uterus tubes ovaries Surgeon: Shazia Cosme tinner automatic: Yamila Briseno Type of Anesthesia: General and Local Specimen's removed: tubes Drains: none Estimated Blood Loss (mL): 50 Fluids Replaced: crystalloid Description of Procedure: Patient was taken in the operating room and was placed under general anesthesia was prepped and draped in normal sterile fashion in the dorsal lithotomy position. Bladder was drained of clear urine and SCDs were on preoperatively. Uterus was sounded and a uterine manipulator was placed after dilating. Attention was then paid to the abdominal portion of the procedure and the umbilicus was elevated with towel clamps and injected with Marcaine and after a 5 mm incision was made and the Veress needle was entered into the abdomen confirmed to be intra-abdominal with a low opening pressure of less than 5 mmHg. Abdomen was insufflated with CO2 gas and a 5 mm optical trocar was placed under direct visualization. A 5 mm port suprapubically was placed under direct visualization. Uterus was well visualized and bilateral fallopian tubes identified and bilateral tubes were elevated and transecting across the mesosalpinx and the attachment to the uterine corpus bilaterally the tubes were removed without complication. Excellent hemostasis was noted. Fallopian tubes were removed through the lower port site without complication. Liver and upper abdomen were visualized notably within normal limits and no other gross abnormalities were seen in the abdomen. All instruments removed from the abdomen after gas was desufflated. Port sites were closed with 3-0 Monocryl Steri's and op sites were applied. All instruments removed from the vagina and patient was awoken and taken recovery in stable condition. Grafts/Implants Used: none Procedure Start Time: 11:00 Procedure Stop Time: 11:55 Complications none Admit VTE Documentation VTE Present on Admission: No VTE Mechan Device Prophylaxis: SCD's Multi Select Codes Urinary/Genital Urinary/Genital CPT Codes: 53123 Laproscopic BS/O
--- NOTE | 2023-05-07 12:29 | DCINST_ITS ---
Discharge Instructions Diet Discharge Diet: No restrictions Activity Discharge Activity: Return to Normal Activity, May Not Drive (for 2 weeks or while taking narcotic pain meds.), May Shower and May Take a Tub Bath (in 7 days) May resume sexual activity in: 1 week Weight Bearing Status: Full weight bearing Dressing / Incision Call your doctor if your incision/area has: Continuous Slow Oozing, Sudden Increased Bleeding, Increased Pain/ Swelling, Increased Redness and Foul Smelling Discharge Call your doctor if you observe: Fever of 101 or Higher, Using more than 1 pad per hour, Shortness of breath, Chest pain and Uncontrolled pain Suture Line Care: Avoid Pulling/Pushing and Avoid Pinching/Bending Remove Dressing in: 1 week (if present) Cleanse incision/area with: Soap & Water and Keep Dressing Clean & Dry Follow Up Care When: Call to make an appointment with your doctor for a fu/incision check in 1- 2 weeks. Test Results: Test results from this visit will be discussed in further detail at your follow- up appointment, if applicable. Discharge Plan Admission Attending Provider: Shazia Cosme Primary Care Provider: Care Physician,Yolanda Primary Discharge Orders/Prescriptions Prescriptions: New naproxen [naproxen] 500 mg tablet 500 mg PO BID PRN PRN (Reason: Pain) Qty: 30 1RF Referrals / Follow Up: Sancho PhysicianYolanda Primary [Primary Care Provider] - Disposition Disposition (needs filled in before D/C Order can be placed): Home, Self Care
== END 2023-05-07 13:32 | disposition home or self-care (01) ==
LOC: SDC 09:13 → AC 09:14
PROVIDERS: Anesthesiology; Referring Provider Obstetrics & Gynecology; Visit Provider Obstetrics & Gynecology
PROC: (CPT 58661; principal; 2023-05-07 10:30)
DX: Z30.2 Encounter for sterilization (principal); Z87.891 Personal history of nicotine dependence; N87.1 Moderate cervical dysplasia
CPT/HCPCS: 58661; 00840; 36415; 81025; 85027; 86850; 86900; 86901; 88302; J7120; J2405